=== PATIENT | male | born 1975 | race Caucasian/White ===

== ENCOUNTER 2021-02-10 07:53 | Outpatient (REF) | payer BC, SELFPAY ==
[2021-02-10 09:35] LABS: MANUAL DIFF FLAG NO
[2021-02-10 09:47] LABS: Glucose Urine UA NEG (NEG); Leukocyte Esterase Urine NEG (NEG); Nitrite Urine NEG (NEG); PH 6.5 (5.0-8.0); Urine Blood NEG (NEG); Urine Ketones NEG (NEG); Urine Protein NEG (NEG-TRACE)
[2021-02-10 09:50] LABS: Basophils Percent Auto 0.2 % (0-2); Eosinophils Absolute Auto 0.1 X10*3/uL (0.0-0.4); Eosinophils Percent Auto 2.4 % (0-4); Hematocrit 40.8 % (42-52); Hemoglobin 13.8 g/dl (14.0-18.0); Imm Gran Abs Auto 0.01 X10*3/uL (0.00-0.03); Imm Gran Pct Auto 0.2 % (0.0-0.4); Lymphocytes Absolute Auto 1.6 X10*3/uL (1.2-4.9); Lymphocytes Percent Auto 35.2 % (20-40); Mean Corpuscular HGB Conc 33.8 g/dl (31.0-36.0); Mean Corpuscular Hemoglobin 28.9 pg (27.0-33.0); Mean Corpuscular Volume 85.5 fL (80-98); Mean Platelet Volume 10.1 fL (9.4-12.4); Monocytes Absolute Auto 0.5 X10*3/uL (0.1-1.2); Monocytes Percent Auto 10.2 % (2-11); Neutrophils Absolute Auto 2.4 X10*3/uL (2.0-8.3); Neutrophils Percent Auto 51.8 % (45-73); Platelet Count 214 X10*3/uL (160-400); Red Blood Count 4.77 X10*6/uL (4.60-5.80); Red Cell Distribution Width 12.2 % (11.0-16.0); White Blood Count 4.6 X10*3/uL (4.8-10.8)
[2021-02-10 09:53] LABS: Appearance Urine CLEAR; Color Urine YELLOW
[2021-02-10 10:14] LABS: Estimated Average Glucose 111 mg/dL; Hemoglobin A1c % 5.5 %
[2021-02-10 10:25] LABS: Alanine Aminotransferase 23 U/L (0-40); Albumin Level 4.3 g/dL (3.5-5.0); Alkaline Phosphatase 65 U/L (39-117); Anion Gap 12 (12-20); Aspartate Amino Transferase 23 U/L (5-37); Blood Urea Nitrogen 15 mg/dL (9-16); Calcium 9.4 mg/dL (8.4-10.2); Carbon Dioxide 29 mmol/L (22-29); Chloride 105 mmol/L (96-108); Cholesterol 168 mg/dL; Estimated Glomerular Filt Rate > 60; Glucose Fasting 117 mg/dL (60-99); HDL Cholesterol 32 mg/dL; LDL Cholesterol Calculated 119 mg/dl; Potassium 4.4 mmol/L (3.3-5.1); Sodium 142 mmol/L (135-145); Total Protein 6.6 g/dL (6.5-8.0); Triglycerides 88 mg/dL
[2021-02-10 10:35] LABS: Prostate Specific Antigen 0.36 ng/mL (<0.05-4.0)
[2021-02-10 11:01] LABS: Reflex LDLD? No
== END 2021-02-10 07:54 | disposition home or self-care (01) ==
LOC: HO.LAB 07:53
PROVIDERS: PCP Internal Medicine; Visit Provider Internal Medicine
DX: Z00.00 Encounter for general adult medical examination without abnormal findings (principal); I10 Essential (primary) hypertension; R73.09 Other abnormal glucose; E78.00 Pure hypercholesterolemia, unspecified
CPT/HCPCS: 36415; 80053; 80061; 81003; 83036; 84153; 85025

== ENCOUNTER → 2021-04-06 13:49 | Outpatient (REF) | payer BC, SELFPAY ==
--- NOTE | 2021-04-06 14:00 | HM_ITS ---
TEST PERFORMED: Cardiac event monitoring. ENROLLMENT PERIOD: 04/06/2021 to 05/06/2021-30 days. INDICATION: Palpitations. FINDINGS: In the above monitoring period, the underlying rhythm was sinus. The rates ranged from 70 beats per minute to 120 beats per minute. First-degree heart block was noted. There was 1 instance of chest pain that showed underlying sinus rhythm at 90/min. No specific patient activated symptoms apart from one instance of palpitations. During that time, again it was underlying sinus rhythm at 95/min. Overall apart from mild sinus tachycardia, there were no other arrhythmias of concern during the entire monitoring period. CONCLUSION: Study shows sinus rhythm only and mild sinus tachycardia with evidence of first-degree heart block without any significant arrhythmias. MD VALENTIN Bourgeois/LOS / [id number] MTDD
== END ==
LOC: HO.CARD 13:49
PROVIDERS: PCP Internal Medicine; Visit Provider Internal Medicine
DX: R00.2 Palpitations (principal)
CPT/HCPCS: 93270

== ENCOUNTER 2022-03-05 12:23 | Outpatient (REF) | payer BC, SELFPAY ==
[2022-03-05 12:28] LABS: MANUAL DIFF FLAG NO
[2022-03-05 12:33] LABS: Basophils Percent Auto 0.5 % (0-2); Eosinophils Absolute Auto 0.1 X10*3/uL (0.0-0.4); Hematocrit 46.1 % (42.0-52.0); Hemoglobin 15.1 g/dl (14.0-18.0); Imm Gran Abs Auto 0.02 X10*3/uL (0.00-0.03); Imm Gran Pct Auto 0.3 % (0.0-0.4); Lymphocytes Absolute Auto 2.3 X10*3/uL (1.2-4.9); Lymphocytes Percent Auto 36.3 % (20-40); Mean Corpuscular HGB Conc 32.8 g/dl (31.0-36.0); Mean Corpuscular Hemoglobin 28.9 pg (27.0-33.0); Mean Corpuscular Volume 88.3 fL (80.0-98.0); Mean Platelet Volume 9.9 fL (9.4-12.4); Monocytes Absolute Auto 0.6 X10*3/uL (0.1-1.2); Monocytes Percent Auto 9.1 % (2-11); Neutrophils Absolute Auto 3.3 x10*3/uL (2.0-8.3); Neutrophils Percent Auto 51.8 % (45-73); Platelet Count 263 X10*3/uL (160-400); Red Blood Count 5.22 X10*6/uL (4.60-5.80); Red Cell Distribution Width 12.5 % (11.0-16.0); White Blood Count 6.4 X10*3/uL (4.8-10.8)
[2022-03-05 12:52] LABS: Appearance Urine CLEAR; Color Urine YELLOW; Glucose Urine UA NEG (NEG); Leukocyte Esterase Urine NEG (NEG); Nitrite Urine NEG (NEG); Specific Gravity - Urine 1.025 (1.005-1.025); Urine Blood NEG (NEG); Urine Ketones NEG (NEG); Urine Protein NEG (NEG-TRACE)
[2022-03-05 12:55] LABS: Alanine Aminotransferase 22 U/L (0-40); Albumin Level 4.7 g/dL (3.5-5.0); Alkaline Phosphatase 71 U/L (39-117); Anion Gap 12 (12-20); Aspartate Amino Transferase 20 U/L (5-37); Blood Urea Nitrogen 14 mg/dL (9-16); Calcium 10.1 mg/dL (8.4-10.2); Carbon Dioxide 29 mmol/L (22-29); Chloride 104 mmol/L (96-108); Cholesterol 217 mg/dL; Estimated Glomerular Filt Rate > 60; Glucose Random 117 mg/dL (60-115); HDL Cholesterol 38 mg/dL; LDL Cholesterol Calculated 147 mg/dl; Potassium 4.4 mmol/L (3.3-5.1); Sodium 141 mmol/L (135-145); Total Protein 7.1 g/dL (6.5-8.0); Triglycerides 160 mg/dL
[2022-03-05 13:21] LABS: Estimated Average Glucose 111 mg/dL; Hemoglobin A1c % 5.5 %
[2022-03-05 13:44] LABS: Creatinine Urine 116.36 mg/dL; Microalbum/Creatinine Ratio Ur 4.2 ug/mg cr
== END 2022-03-05 12:24 | disposition home or self-care (01) ==
LOC: HO.LNP 12:23
PROVIDERS: Visit Provider Internal Medicine
DX: Z00.00 Encounter for general adult medical examination without abnormal findings (principal); Z12.5 Encounter for screening for malignant neoplasm of prostate; R73.03 Prediabetes; E78.00 Pure hypercholesterolemia, unspecified; I10 Essential (primary) hypertension
CPT/HCPCS: 80053; 80061; 81003; 82043; 83036; 84153; 85025

== ENCOUNTER 2022-08-28 06:26 | Day surgery (SDC) | payer BC, SELFPAY ==
--- NOTE | 2022-08-27 10:16 | HO.ANESPROP2 ---
Documented by User: Marilia Lowe NP 08/27/22 10:17 HPI - Anesthesia Eval Consult details Narrative: 47yo M for Upper Endoscopy and Colonoscopy PMFSH Past Medical History Medical History (Updated 08/27/22 @ 13:22 by Maury Flower, RN) GERD (gastroesophageal reflux disease) Hyperlipidemia Hypertension Surgical History Surgical History (Updated 08/27/22 @ 13:22 by Maury Flower, RN) History of colonoscopy Social History Social History (Updated 08/28/22 @ 07:48 by Julissa Gonzalez MD) Patient Tobacco Use Status: Former Tobacco user Substance Use Type: Crack/Cocaine Last Used Substance: Weeks (ago) Advance Directives: No Advance Directives Information Provided: Yes Recently lost weight without trying: No Nutrition Risks: No Nutritional Risk Meds Allergies Allergy/AdvReac Type Severity Reaction Status Date / Time No Known Allergies Allergy Unverified 08/10/20 15:15 Home Medications Medication Instructions Recorded Confirmed Last Taken Type atorvastatin 40 mg tablet 1 tab PO DAILY 08/27/22 08/27/22 Unknown History omeprazole 20 mg capsule,delayed 1 cap PO DAILY 08/27/22 08/27/22 Unknown History release valsartan 80 mg tablet 1 tab PO DAILY 08/27/22 08/27/22 Unknown History Exam Exam Date and Time: August 27, 2022 1016 Pertinent Lab Results Pertinent Lab Results: Laboratory Tests 03/05/22 03/05/22 07:10 07:10 WBC 6.4 Hgb 15.1 Hct 46.1 Plt Count 263 Sodium 141 Potassium 4.4 Chloride 104 Carbon Dioxide 29 BUN 14 Creatinine 1.07 Narrative Narrative: 30 Day Holter 2020 CONCLUSION:? Study shows sinus rhythm only and mild sinus tachycardia with evidence of first-degree heart block without any significant arrhythmias. Assessment and Plan Assessment Anesthesia Assessment: Chart Reviewed Documented by User: Julissa Gonzalez MD 08/28/22 07:52 [facility] Active Problems Active Problems: Increased BMI. Denies ADARSH H/o cocaine use. States last used 1 month ago Past Medical History Medical History (Updated 08/27/22 @ 13:22 by Maury Floewr RN) GERD (gastroesophageal reflux disease) Hyperlipidemia Hypertension Family History Family history of problems with anesthesia: No Surgical History Surgical History (Updated 08/27/22 @ 13:22 by Maury Flower RN) History of colonoscopy History of Problems with Anesthesia: No Social History Social History (Updated 08/28/22 @ 07:48 by Julissa Gonzalez MD) Patient Tobacco Use Status: Former Tobacco user Substance Use Type: Crack/Cocaine Last Used Substance: Weeks (ago) Advance Directives: No Advance Directives Information Provided: Yes Recently lost weight without trying: No Nutrition Risks: No Nutritional Risk Meds Allergies Allergy/AdvReac Type Severity Reaction Status Date / Time No Known Allergies Allergy Unverified 08/10/20 15:15 Home Medications Medication Instructions Recorded Confirmed Last Taken Type atorvastatin 40 mg tablet 1 tab PO DAILY 08/27/22 08/27/22 Unknown History omeprazole 20 mg capsule,delayed 1 cap PO DAILY 08/27/22 08/27/22 Unknown History release valsartan 80 mg tablet 1 tab PO DAILY 08/27/22 08/27/22 Unknown History Exam Height,Weight and Vital Signs: Height 6 ft 2 in Weight 121.109 kg Vital Signs Temp Pulse Resp BP Pulse Ox O2 Del Method 08/28/22 06:45 97 F 79 19 147/83 H 99 Room Air Airway Mallampati Class: II TM Dist: >3cm Neck ROM: Full Loose/Missing/Broken Teeth: Yes (Some extractions) Heart: RRR Lungs: CTAB Assessment and Plan Assessment Anesthesia Assessment: Anesthesia Plan Discussed Final Anesthetic Review Family History of Problems with Anesthesia: No History of Problems with Anesthesia: No NPO: Yes ASA Class: III Final Preanesthetic Review: No Changes in Pt Med Stat, Meds/Allgs Chart Reviewed, Consent Obtained/Reviewed and Anes Risks/Benef Reviewed Patient Risk: Intermediate Procedure Risk: Low Assessment/Block/Sedation in SS: Assess/Block/Sedation-SS Anesthetic Plan Anesthetic Plan: MAC: Disposition: Standard PACU
[2022-08-28 06:10] VITALS: BMI 34.2
[2022-08-28 06:45] VITALS: BP 147/83; PULSE 79; RESP 19; TEMP 36.1; O2SAT 99
[2022-08-28] MEDS: Lactated Ringers 1,000 ML 100 ML IVCONT (06:59)
[2022-08-28 08:49] VITALS: BP 116/69; PULSE 91; RESP 16; TEMP 36.8; O2SAT 99
--- NOTE | 2022-08-28 08:52 | P.BOP_ITS ---
Brief Operative Note Date of Service: 08/28/22 Pre-op diagnosis: GERD, Normal EGD, Screening Post-op diagnosis: other (Same, Colon polyps) Procedure: EGD, Colonoscopy to the cecum and TI with biopsies, and hot snare polypectomy of AC polyp Surgeon: Hong Hernandez Anesthesia: MAC Was an Sheet Metal Duct Installer Helper used for this Procedure?: No Estimated blood loss (mL): 2.0 Pathology: other (A. Cecal polyp B. Proximal AC polyp) Condition: stable Disposition: PACU
[2022-08-28 09:04] VITALS: BP 115/85; PULSE 73; RESP 20; TEMP 36.2; O2SAT 97
--- NOTE | 2022-08-28 22:44 | OP_ITS ---
SURGEON: Hong Hernandez MD INDICATIONS: The patient presents for evaluation of gastroesophageal reflux, personal history of a serrated adenoma of the colon, and colorectal cancer screening. Full consent has been obtained from him for this, including risks of bleeding and perforation. PREOPERATIVE DIAGNOSIS: POSTOPERATIVE DIAGNOSIS: PROCEDURE PERFORMED: Esophagogastroduodenoscopy and colonoscopy to the cecum and terminal ileum with biopsies and hot snare polypectomy. ESTIMATED BLOOD LOSS: COMPLICATIONS: ANESTHESIA: Monitored anesthesia care. ASSISTANTS: SPECIMENS: PREOPERATIVE DIAGNOSES: Gastroesophageal reflux, personal history of serrated adenoma of the colon, colorectal cancer screening. POSTOPERATIVE DIAGNOSES: Gastroesophageal reflux, personal history of serrated adenoma of the colon, colorectal cancer screening, normal upper endoscopy, colon polyps, diverticulosis, small internal hemorrhoids. DESCRIPTION OF PROCEDURE: The patient was placed in the left lateral decubitus position. The Olympus video gastroscope was passed in the posterior oropharynx and upper esophagus under direct vision. The scope was passed slowly to the distal esophagus. The gastroesophageal junction appeared normal at 39 cm. There was no sign of any esophagitis nor Jerry esophagus. The scope entered into the stomach. There was no appreciable hiatal hernia. The scope was advanced to the pylorus, and the duodenum was cannulated to the descending portion. The duodenum including the bulb appeared normal without mass or ulceration. The scope was withdrawn back in the stomach. The gastric antrum and body appeared normal with good peristalsis. The scope was retroflexed visualizing the proximal stomach carefully which appeared normal, without any sign of mass or ulceration. The scope was straightened and withdrawn back into the esophagus. The esophageal mucosa appeared normal. The scope was withdrawn from the patient. He was turned around for colonoscopy. The digital rectal exam revealed no abnormalities. The Olympus video pediatric colonoscope was entered into the rectum and advanced easily to the cecum. Once in the cecum, I did identify appendiceal orifice and a normal-appearing ileocecal valve. The terminal ileum was cannulated and appeared normal. The scope was withdrawn back in the colon. The entire cecum was well visualized. In the area adjacent to the appendiceal orifice was a possible 5 or 6 mm area of polypoid tissue, which was biopsied several times. I suspect this probably represented some hyperplastic and/or edematous tissue. The remainder of the cecum appeared normal. The scope was then slowly withdrawn assessing all mucosal surfaces carefully. Preparation was excellent. In the proximal ascending colon was an approximately 8 mm polyp, which was removed by hot snare polypectomy and recovered by suction. The polypectomy site appeared clean, without any sign of residual polyp nor bleeding. I did not visualize any other polyps, colitis, or angiodysplasia. There was a mild amount of diverticulosis noted in the ascending colon, descending colon, and sigmoid colon. In the rectum, scope was retroflexed visualizing internal hemorrhoids, but no other pathology. The rectal mucosa appeared normal. The scope was straightened and withdrawn from the patient. He tolerated both procedures well and was returned to the recovery area in stable condition. IMPRESSION: 1. Normal upper endoscopy. 2. Colon polyps. 3. Diverticulosis. 4. Internal hemorrhoids. PLAN: The results of the Pathology will be checked. Given his previous history, I would recommend a followup colonoscopy within 3 years for further screening and surveillance. He was advised not to use any aspirin or NSAIDs for 1 week. He should continue omeprazole either daily or as needed for symptomatic relief of reflux. He could otherwise see me on a p.r.n. basis. MD YARED Mai/LOS / [id number] MTDD
== END 2022-08-28 09:29 | disposition home or self-care (01) ==
PROVIDERS: PCP Internal Medicine; Visit Provider Internal Medicine
PROC: (CPT 45385; principal; 2022-08-28 07:30)
DX: Z12.11 Encounter for screening for malignant neoplasm of colon (principal); Z86.010 Personal history of colon polyps; D12.0 Benign neoplasm of cecum; D12.2 Benign neoplasm of ascending colon; K57.30 Diverticulosis of large intestine without perforation or abscess without bleeding; K64.8 Other hemorrhoids; K21.9 Gastro-esophageal reflux disease without esophagitis; E78.5 Hyperlipidemia, unspecified; I10 Essential (primary) hypertension; Z79.899 Other long term (current) drug therapy; Z87.891 Personal history of nicotine dependence
CPT/HCPCS: 45385; 45380; 43235; 88305

== ENCOUNTER 2022-09-20 10:39 | Outpatient (REF) | payer BC, SELFPAY ==
[2022-09-20 12:09] LABS: Estimated Average Glucose 117 mg/dL; Hemoglobin A1c % 5.7 %
[2022-09-20 12:22] LABS: Alanine Aminotransferase 22 U/L (0-40); Albumin Level 4.4 g/dL (3.5-5.0); Alkaline Phosphatase 59 U/L (39-117); Aspartate Amino Transferase 20 U/L (5-37); Bilirubin Direct 0.2 mg/dL (0.0-0.5); Bilirubin Total 0.4 mg/dL (0.0-1.0); Cholesterol 199 mg/dL; Glucose Fasting 116 mg/dL (60-99); HDL Cholesterol 34 mg/dL; LDL Cholesterol Calculated 143 mg/dl; Total Protein 6.5 g/dL (6.5-8.0); Triglycerides 112 mg/dL
[2022-09-20 12:54] LABS: Reflex LDLD? No
== END 2022-09-20 10:40 | disposition home or self-care (01) ==
LOC: HO.LNP 10:39
PROVIDERS: Visit Provider Internal Medicine
DX: E78.00 Pure hypercholesterolemia, unspecified (principal); R73.03 Prediabetes
CPT/HCPCS: 80061; 80076; 82947; 83036

== ENCOUNTER 2023-01-09 16:37 | Outpatient (REF) | payer BC, SELFPAY ==
[2023-01-09 17:43] LABS: Influenza A PCR NEGATIVE (Negative); Influenza B PCR NEGATIVE (Negative); Resp Syncy Virus RNA Qual PCR NEGATIVE (Negative); SARS COV2 PCR INHOUSE NEGATIVE (Negative)
== END 2023-01-09 16:38 | disposition home or self-care (01) ==
LOC: HO.LNP 16:37
PROVIDERS: Visit Provider Physician Assistant Medical
DX: Z20.822 Contact with and (suspected) exposure to COVID-19 (principal); R05.9 Cough, unspecified
CPT/HCPCS: 0241U

== ENCOUNTER 2023-03-14 11:22 | Outpatient (REF) | payer BC, SELFPAY ==
[2023-03-14 11:25] LABS: MANUAL DIFF FLAG NO
[2023-03-14 11:46] LABS: Basophils Percent Auto 0.5 % (0-2); Eosinophils Absolute Auto 0.2 X10*3/uL (0.0-0.4); Hemoglobin 14.4 g/dl (14.0-18.0); Imm Gran Abs Auto 0.03 X10*3/uL (0.00-0.03); Imm Gran Pct Auto 0.4 % (0.0-0.4); Lymphocytes Absolute Auto 2.2 X10*3/uL (1.2-4.9); Lymphocytes Percent Auto 27.7 % (20-40); Mean Corpuscular HGB Conc 33.5 g/dl (31.0-36.0); Mean Corpuscular Hemoglobin 29.4 pg (27.0-33.0); Mean Corpuscular Volume 87.9 fL (80.0-98.0); Mean Platelet Volume 10.4 fL (9.4-12.4); Monocytes Absolute Auto 0.8 X10*3/uL (0.1-1.2); Monocytes Percent Auto 9.8 % (2-11); Neutrophils Absolute Auto 4.8 x10*3/uL (2.0-8.3); Neutrophils Percent Auto 59.6 % (45-73); Platelet Count 253 X10*3/uL (160-400); Red Blood Count 4.89 X10*6/uL (4.60-5.80); Red Cell Distribution Width 12.8 % (11.0-16.0)
[2023-03-14 11:49] LABS: Appearance Urine Clear; Color Urine Yellow; Glucose Urine UA Negative (Negative); Leukocyte Esterase Urine Negative (Negative); Nitrite Urine Negative (Negative); PH 5.5 (5.0-9.0); Specific Gravity - Urine >= 1.030 (1.005-1.025); Urine Blood Negative (Negative); Urine Ketones Negative (Negative); Urine Protein Trace mg/dL (Neg-Trace)
[2023-03-14 11:57] LABS: Bacteria Urine None Seen (None Seen); RBC Urine 0-2 /HPF (0-2); Squamous Epithelial Cell Urine 0-2 /HPF (0-2); WBC Urine 0-5 /HPF (0-5)
[2023-03-14 12:07] LABS: Alanine Aminotransferase 27 U/L (0-40); Albumin Level 4.7 g/dL (3.5-5.0); Alkaline Phosphatase 70 U/L (39-117); Anion Gap 14 (12-20); Aspartate Amino Transferase 23 U/L (5-37); Bilirubin Total 1.5 mg/dL (0.0-1.0); Blood Urea Nitrogen 17 mg/dL (9-16); Calcium 9.5 mg/dL (8.4-10.2); Carbon Dioxide 26 mmol/L (22-29); Chloride 106 mmol/L (96-108); Cholesterol 189 mg/dL; Estimated Glomerular Filt Rate > 60; Glucose Fasting 112 mg/dL (60-99); HDL Cholesterol 35 mg/dL; LDL Cholesterol Calculated 137 mg/dl; Potassium 3.8 mmol/L (3.3-5.1); Sodium 142 mmol/L (135-145); Total Protein 6.7 g/dL (6.5-8.0); Triglycerides 89 mg/dL
[2023-03-14 12:19] LABS: Estimated Average Glucose 114 mg/dL; Hemoglobin A1c % 5.6 %
[2023-03-14 12:26] LABS: PSA,Total (Free>4and<10) 0.39 ng/mL (0.00-4.00)
[2023-03-14 12:42] LABS: Creatinine Urine 341.17 mg/dL; Microalbum/Creatinine Ratio Ur 6.4 ug/mg cr
== END 2023-03-14 11:23 | disposition home or self-care (01) ==
LOC: HO.LNP 11:22
PROVIDERS: Visit Provider Internal Medicine
DX: Z00.00 Encounter for general adult medical examination without abnormal findings (principal); R73.09 Other abnormal glucose; E78.00 Pure hypercholesterolemia, unspecified; I10 Essential (primary) hypertension; Z12.5 Encounter for screening for malignant neoplasm of prostate
CPT/HCPCS: 80053; 80061; 81001; 82043; 83036; 84153; 85025

== ENCOUNTER 2023-09-09 11:38 | Outpatient (REF) | payer BC, SELFPAY ==
[2023-09-09 12:53] LABS: Cholesterol 182 mg/dL (<200); HDL Cholesterol 40 mg/dL (>40); LDL Cholesterol Calculated 115 mg/dL (<100); Triglycerides 138 mg/dL (<150)
[2023-09-09 12:54] LABS: Alanine Aminotransferase 16 U/L (0-40); Albumin Level 4.5 g/dL (3.5-5.0); Alkaline Phosphatase 82 U/L (39-117); Aspartate Amino Transferase 18 U/L (5-37); Bilirubin Direct 0.3 mg/dL (0.0-0.5); Bilirubin Total 1.2 mg/dL (0.0-1.0); Total Protein 7.1 g/dL (6.5-8.0)
[2023-09-09 13:34] LABS: Reflex LDLD? No
== END 2023-09-09 11:39 | disposition home or self-care (01) ==
LOC: HO.LNP 11:38
PROVIDERS: Visit Provider Internal Medicine
DX: E78.00 Pure hypercholesterolemia, unspecified (principal)
CPT/HCPCS: 80061; 80076

== ENCOUNTER 2024-03-16 11:25 | Outpatient (REF) | payer BC, SELFPAY ==
[2024-03-16 11:32] LABS: MANUAL DIFF FLAG NO
[2024-03-16 11:41] LABS: Basophils Percent Auto 0.4 % (0-2); Eosinophils Absolute Auto 0.1 X10*3/uL (0.0-0.4); Eosinophils Percent Auto 2.4 % (0-4); Hematocrit 40.5 % (42.0-52.0); Hemoglobin 13.6 g/dl (14.0-18.0); Imm Gran Abs Auto 0.02 X10*3/uL (0.00-0.03); Imm Gran Pct Auto 0.4 % (0.0-0.4); Lymphocytes Absolute Auto 1.8 X10*3/uL (1.2-4.9); Lymphocytes Percent Auto 33.2 % (20-40); Mean Corpuscular HGB Conc 33.6 g/dl (31.0-36.0); Mean Corpuscular Hemoglobin 29.3 pg (27.0-33.0); Mean Corpuscular Volume 87.3 fL (80.0-98.0); Monocytes Absolute Auto 0.5 X10*3/uL (0.1-1.2); Monocytes Percent Auto 8.6 % (2-11); Platelet Count 226 X10*3/uL (160-400); Red Blood Count 4.64 X10*6/uL (4.60-5.80); Red Cell Distribution Width 12.9 % (11.0-16.0); White Blood Count 5.5 X10*3/uL (4.8-10.8)
[2024-03-16 12:02] LABS: Alanine Aminotransferase 19 U/L (0-40); Albumin Level 4.1 g/dL (3.5-5.0); Alkaline Phosphatase 58 U/L (39-117); Anion Gap 11 (12-20); Aspartate Amino Transferase 19 U/L (5-37); Bilirubin Total 0.6 mg/dL (0.0-1.0); Blood Urea Nitrogen 16 mg/dL (9-16); Calcium 9.4 mg/dL (8.4-10.2); Carbon Dioxide 28 mmol/L (22-29); Chloride 107 mmol/L (96-108); Cholesterol 147 mg/dL (<200); Estimated Glomerular Filt Rate > 60; Glucose Fasting 109 mg/dL (60-99); HDL Cholesterol 32 mg/dL (>40); LDL Cholesterol Calculated 101 mg/dL (<100); Potassium 3.8 mmol/L (3.3-5.1); Sodium 142 mmol/L (135-145); Total Protein 6.5 g/dL (6.5-8.0); Triglycerides 72 mg/dL (<150)
== END 2024-03-16 11:26 | disposition home or self-care (01) ==
LOC: HO.LNP 11:25
PROVIDERS: Visit Provider Internal Medicine
DX: Z00.00 Encounter for general adult medical examination without abnormal findings (principal); Z13.6 Encounter for screening for cardiovascular disorders
CPT/HCPCS: 80053; 80061; 85025

== ENCOUNTER 2024-03-23 15:41 | Outpatient (REF) | payer BC, SELFPAY ==
[2024-03-23 16:16] LABS: Appearance Urine Clear; Glucose Urine UA Negative (Negative); Leukocyte Esterase Urine Negative (Negative); Nitrite Urine Negative (Negative); Urine Blood Negative (Negative); Urine Ketones Negative (Negative); Urine Protein Negative (Neg-Trace)
[2024-03-23 16:22] LABS: Color Urine Yellow
[2024-03-23 16:24] LABS: Bacteria Urine None Seen (None Seen); Hyaline Casts Urine 0-2 /LPF (0-2); RBC Urine 0-2 /HPF (0-2); Squamous Epithelial Cell Urine 0-2 /HPF (0-2); WBC Urine 0-5 /HPF (0-5)
[2024-03-23 17:16] LABS: Creatinine Urine 44.17 mg/dL; Microalbumin Urine < 5.0 mg/L
== END 2024-03-23 15:42 | disposition home or self-care (01) ==
LOC: HO.LNP 15:41
PROVIDERS: Visit Provider Internal Medicine
DX: Z00.00 Encounter for general adult medical examination without abnormal findings (principal); R73.03 Prediabetes; E78.00 Pure hypercholesterolemia, unspecified
CPT/HCPCS: 81001; 82043; 82570

== ENCOUNTER → 2024-08-16 15:41 | Outpatient (REF) | payer BC, SELFPAY ==
--- NOTE | 2024-08-16 15:46 | CA_ITS ---
Transthoracic Echocardiogram Patient (Last, First, Middle): George Gonzales J Gender: Male Date of : 1975 Age: 49 Procedure Date: 08/16/2024 Procedure Type: Transthoracic Echocardiogram Location: OP Height: 190.5 cm Weight: 107.05 kg BSA: 2.35 m2 Heart Rate: 78 bpm BP: 122 / 80 mmHg Schedule Manager: Referring MD: Bryn Perla MD Symptoms: R01.1 HEART MURMUR Study Quality: Good ECG Rhythm: Sinus Conclusions: - The left ventricular systolic function is normal. The calculated ejection fraction is 60% by biplane method. - Aortic valve sclerosis but no significant stenosis. - Possible mild pulmonic stenosis. Findings Left Ventricle Normal left ventricular cavity size. There is normal left ventricular wall thickness. The left ventricular systolic function is normal. The calculated ejection fraction is 60% by biplane method. There is no evidence of regional wall motion abnormalities. Evidence suggests grade I (mild) diastolic dysfunction. Right Ventricle Normal right ventricular cavity size and systolic function. Atria Both atria are normal in size. Aortic Valve There is a normal trileaflet aortic valve. There is mild calcification of the aortic valve. There is no aortic valve regurgitation. No significant stenosis. Mitral Valve The mitral valve appears normal. There is no mitral valve regurgitation. There is no mitral valve stenosis. Pulmonic Valve Peak PV gradient is calculated at 13 mmHg. Possible mild pulmonic stenosis. Tricuspid Valve Normal tricuspid valve structure. There is trace tricuspid valve regurgitation. There is no evidence of pulmonary hypertension. Great Vessels The asc aorta is normal in size. Small plaque is seen in the sino tubular ridge. Venous The inferior vena cava is normal in size and collapses greater than 50% with inspiration. Pericardium/Pleural There is no evidence of pericardial effusion. Prior Study Comparison No prior study available for comparison. Measurements 2D Linear Measurements IVSd: 1.04 0.6-0.9/0.6-1.0 cm LVIDd: 5.07 3.9-5.3/4.2-5.9 cm LVIDd Index: 2.16 2.4-3.2/2.2-3.1 cm/m2 LVIDs: 2.84 2.0-3.6 cm LVPWd: 1.02 0.7-1.1 cm Ao Root: 3.10 2.1-3.5 cm LA Diam: 3.70 2.7-3.8/3.0-4.0 cm LAIDs Index: 1.57 1.5-2.3 cm/m2 LV Mass: 241.43 67-162/88-224 g LV Mass Index: 102.74 43-95/49-115 g/m2 LVOT Diam: 2.20 3.0+(-)1.3 cm 2D Systolic Function EF 4C: 58.00 >55% EF 2C: 63.70 >55% EF BiP: 60.40 >55% Mitral Valve MV Pk E: 0.64 MV PK A: 0.99 MV Decel Time: 109.00 E/A: 0.60 E'Lateral: 8.38 E'Medial: 5.33 E/E' Med: 12.00 E/E' Lat: 7.60 PHT: 32.00 MVA PHT: 6.88 Decel Harford: 5.83 Aortic Valve AoV Pk Griffin: 2.15 AoV Mn Griffin: 1.46 AoV VTI: 0.43 AoV Pk Grad: 18.00 Aov Mn Grad: 10.00 EVERETTE Cont.VTI: 1.75 EVERETTE: 1.75 LVOT LVOT Pk Griffin: 1.05 LVOT Mn Griffin: 0.70 LVOT VTI: 0.22 LVOT Pk Grad: 4.00 LVOT Mn Grad: 2.00 LVOT Diam: 2.20 LVOT Area: 3.80 Diastolic Function MV Pk E: 0.64 MV Pk A: 0.99 E/A: 0.60 E'Medial: 5.33 E/E' Med: 12.00 E' Laterial: 8.38 E/E' Lat: 7.60 Right Ventricle TAPSE (mm): 29.00 TVS' Griffin: 13.00 Tricuspid Valve TR Pk Griffin: 1.66 TR Pk Grad: 11.00 RA Press: 3.00 RVSP: 14.00 Great Vessels Aorta Ao Root-2D: 3.10 2.0-3.7 cm Ao Asc: 3.40 2.1-3.4 cm Pulmonary Valve PV Pk Griffin: 1.79 Peak PV Grad: 13.00 Updated in Other Vendor System with Status of Final Teodoro Mock MD electronically signed on 08/17/2024 2:50:14 PM with status of Final
== END ==
LOC: HO.CARD 15:41
PROVIDERS: PCP Internal Medicine; Visit Provider Internal Medicine
DX: R01.1 Cardiac murmur, unspecified (principal)
CPT/HCPCS: 93306

== ENCOUNTER → 2024-08-16 15:46 | Outpatient (BNV) | payer BC, SELFPAY | PROVIDERS: PCP Internal Medicine; Visit Provider Internal Medicine | DX: I35.8 Other nonrheumatic aortic valve disorders (principal); R01.1 Cardiac murmur, unspecified; I37.0 Nonrheumatic pulmonary valve stenosis; I51.89 Other ill-defined heart diseases | CPT/HCPCS: 93306 ==

== ENCOUNTER 2024-09-11 11:21 | Outpatient (REF) | payer BC, SELFPAY ==
[2024-09-11 13:41] LABS: Alanine Aminotransferase 20 U/L (0-40); Albumin Level 4.4 g/dL (3.5-5.0); Alkaline Phosphatase 67 U/L (39-117); Aspartate Amino Transferase 19 U/L (5-37); Bilirubin Direct 0.3 mg/dL (0.0-0.5); Bilirubin Total 0.9 mg/dL (0.0-1.0); Cholesterol 183 mg/dL (<200); Glucose Fasting 106 mg/dL (60-99); HDL Cholesterol 44 mg/dL (>40); LDL Cholesterol Calculated 126 mg/dL (<100); Total Protein 6.7 g/dL (6.5-8.0); Triglycerides 67 mg/dL (<150)
[2024-09-11 13:48] LABS: Estimated Average Glucose 117 mg/dL; Hemoglobin A1C 131.2687 umol/L; Hemoglobin A1c % 5.7 % (<6.0)
== END 2024-09-11 11:22 | disposition home or self-care (01) ==
LOC: HO.HMGCLDS 11:21
PROVIDERS: PCP Internal Medicine; Visit Provider Internal Medicine
DX: R73.09 Other abnormal glucose (principal); E78.00 Pure hypercholesterolemia, unspecified
CPT/HCPCS: 36415; 80061; 80076; 82947; 83036

== ENCOUNTER 2025-03-21 10:33 | Outpatient (REF) | payer BC, SELFPAY ==
[2025-03-21 10:36] LABS: MANUAL DIFF FLAG NO
[2025-03-21 11:01] LABS: Appearance Urine Clear; Color Urine Yellow; Glucose Urine UA Negative (Negative); Leukocyte Esterase Urine Negative (Negative); Nitrite Urine Negative (Negative); Urine Blood Negative (Negative); Urine Ketones Trace mg/dL (Negative); Urine Protein Negative (Neg-Trace)
[2025-03-21 11:06] LABS: Estimated Average Glucose 111 mg/dL; Hemoglobin A1C 131.3812 umol/L; Hemoglobin A1c % 5.5 % (<6.0); Total Hemoglobin (HGBA1C) 3567.0967 umol/L
[2025-03-21 11:07] LABS: Bacteria Urine None Seen (None Seen); Hyaline Casts Urine 0-2 /LPF (0-2); RBC Urine 0-2 /HPF (0-2); Squamous Epithelial Cell Urine 0-2 /HPF (0-2); WBC Urine 0-5 /HPF (0-5)
[2025-03-21 11:23] LABS: Alanine Aminotransferase 21 U/L (0-40); Albumin Level 4.3 g/dL (3.5-5.0); Alkaline Phosphatase 70 U/L (39-117); Anion Gap 12 (12-20); Aspartate Amino Transferase 27 U/L (5-37); Blood Urea Nitrogen 10 mg/dL (9-16); Calcium 9.5 mg/dL (8.4-10.2); Carbon Dioxide 28 mmol/L (22-29); Chloride 107 mmol/L (96-108); Cholesterol 148 mg/dL (<200); Estimated Glomerular Filt Rate > 60; Glucose Fasting 109 mg/dL (60-99); HDL Cholesterol 38 mg/dL (>40); LDL Cholesterol Calculated 98 mg/dL (<100); Sodium 143 mmol/L (135-145); Total Protein 6.6 g/dL (6.5-8.0); Triglycerides 60 mg/dL (<150)
[2025-03-21 11:27] LABS: PSA,Total (Free>4and<10) 0.33 ng/mL (0.00-4.00)
[2025-03-21 12:06] LABS: Creatinine Urine 273.41 mg/dL; Microalbum/Creatinine Ratio Ur 5.8 ug/mg cr (<30)
[2025-03-21 12:19] LABS: Basophils Percent Auto 0.4 % (0-2); Eosinophils Absolute Auto 0.3 X10*3/uL (0.0-0.4); Eosinophils Percent Auto 4.3 % (0-4); Hemoglobin 13.5 g/dl (14.0-18.0); Imm Gran Abs Auto 0.03 X10*3/uL (0.00-0.03); Imm Gran Pct Auto 0.4 % (0.0-0.4); Lymphocytes Absolute Auto 1.6 X10*3/uL (1.2-4.9); Lymphocytes Percent Auto 22.6 % (20-40); Mean Corpuscular HGB Conc 33.8 g/dl (31.0-36.0); Mean Corpuscular Hemoglobin 29.2 pg (27.0-33.0); Mean Corpuscular Volume 86.6 fL (80.0-98.0); Mean Platelet Volume 9.6 fL (9.4-12.4); Monocytes Percent Auto 13.7 % (2-11); Neutrophils Absolute Auto 4.2 x10*3/uL (2.0-8.3); Neutrophils Percent Auto 58.6 % (45-73); Platelet Count 257 X10*3/uL (160-400); Red Blood Count 4.62 X10*6/uL (4.60-5.80); Red Cell Distribution Width 12.7 % (11.0-16.0); White Blood Count 7.2 X10*3/uL (4.8-10.8)
== END 2025-03-21 10:34 | disposition home or self-care (01) ==
LOC: HO.LNP 10:33
PROVIDERS: Visit Provider Internal Medicine
DX: Z00.00 Encounter for general adult medical examination without abnormal findings (principal); R73.09 Other abnormal glucose; E78.00 Pure hypercholesterolemia, unspecified; I10 Essential (primary) hypertension; Z12.5 Encounter for screening for malignant neoplasm of prostate
CPT/HCPCS: 80053; 80061; 81001; 82043; 82570; 83036; 84153; 85025

== ENCOUNTER 2025-09-12 11:05 | Outpatient (AMB) | payer BC, SELFPAY ==
--- NOTE | 2025-09-12 11:10 | A.OFFVIS_ITS ---
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 Last year, he underwent an echocardiogram with reported aortic sclerosis and mild pulmonic stenosis. Patient himself does not have any known cardiac issues including coronary disease or myocardial infarction cardiomyopathy. Many risk factors including hypertension, dyslipidemia, history of remote use of drugs like cocaine but not in 20 years or so. He states he gets chest pains somewhat randomly. No clear provoking or relieving factors. He feels that discomfort in the front of the chest and bothersome but he thinks it is more muscular than anything else. Does not last more than a few sec. Nonexertional. [facility] Medical History (Updated 09/12/25 @ 12:12 by Teodoro Mock MD) History of cardiac monitoring Hyperlipidemia GERD (gastroesophageal reflux disease) Hypertension Surgical History History of colonoscopy Family History (Updated 09/12/25 @ 11:26 by Brenton Strong CNA) Maternal Grandfather No problems noted. Social History (Updated 09/12/25 @ 11:14 by Brenton Strong CNA) Alcohol intake: current Alcohol intake frequency: holidays/special occasions only Alcohol type: beer Patient Tobacco Use Status: Former Tobacco user Substance Use Type: Crack/Cocaine Review of Systems Const Denies chills, Denies daytime sleepiness, Denies fatigue, Denies fever(s), Denies poor appetite, Denies snoring, Denies stops breathing during sleep, Denies weight gain and Denies weight loss Eyes Denies loss of vision Card Denies chest pain, Denies claudication, Denies leg edema, Denies lightheadedness, Denies palpitations, Denies dyspnea, Denies dyspnea on exertion and Denies orthopnea Resp Denies cough, Denies excessive phlegm production, Denies pain with cough, Denies dyspnea, Denies dyspnea on exertion, Denies snoring, Denies wheezing and Denies other GI Denies abdominal pain, Denies hematochezia, Denies change in bowel habits, Denies nausea and Denies vomiting Denies dysuria and Denies urinary frequency Musc Denies arthralgias and Denies muscle weakness Skin/Breast Denies nail changes and Denies rash Neuro Denies loss of vision and Denies memory loss Psych Denies depression, Reports difficulty concentrating, Denies auditory hallucinations and Denies memory loss Endo Denies fatigue and Denies palpitations Oral/Lymph Denies easy bruising Aller/Immun Denies wheezing Physical Exam Vital Signs: Last Vital Signs Pulse 81 09/12/25 11:11 BP 120/74 09/12/25 11:11 BMI result Body Mass Index 29.9 Const General: comfortable and no acute distress Orientation/consciousness: patient oriented x3 HEENT Other: Unremarkable Head: Yes normal to inspection Neck Neck: Yes normal visual inspection Chest Chest palpation & inspection: normal inspection of the chest Resp Auscultation: clear to auscultation bilaterally Cardio Palpation: normal PMI Heart sounds: S1 normal heart sound present, S2 normal heart sound present, no gallops, Murmur heart sound present systolic II/, at the left sternal border and at the right sternal border and no rubs GI Palpation (GI): Soft to palpation Back/Spine/Pelvis Other: unremarkable Skin General skin exam: no rashes or lesions noted Neuro General: patient oriented x3 Extrem General: Yes normal to inspection Psych Mental Status: mental status grossly normal Office Procedures EKG Details: EKG with sinus rhythm at 81/Min; RI prolongation to 214 milliseconds; [place] [address]-Cleputgiuoedzobph, Complete Assessment & Plan Assessment & Plan (1) Precordial chest pain: Code(s): R07.2 - Precordial pain Category: Medical Plan: Atypical sounding chest pain with multiple risk factors. Obtain coronary CTA further evaluation. (2) Aortic valve sclerosis: Code(s): I35.8 - Other nonrheumatic aortic valve disorders Category: Medical Plan: We will need echocardiogram in 2-3 years. (3) Pulmonic valve stenosis: Category: Medical Plan: No hemodynamic consequence. Unlikely this would progress in the future. We will review on future echocardiogram. Plan Discussion Notes During the consultation, I discussed the patient's aortic and pulmonic valve stenosis, explaining that these are not expected to worsen significantly in the near future. I recommended periodic echocardiograms to monitor the valve conditions over time. Regarding the chest discomfort, I explained that it does not appear to be cardiac in nature, but given the patient's history of cocaine use and multiple risk factors, I suggested a CT scan to check for any plaque buildup, considering the potential cardiovascular implications. Patient was informed and verbally consented to the use of an ambient scribe for clinic note documentation during this visit. Orders: Orders CT Cardiac Coronary Angio Today I25.10 - Atherosclerotic heart disease of andreafski coronary artery without angina pectoris, R07.2 - Precordial pain Basic Metabolic Panel Today R07.2 - Precordial pain Coding Level of Care Code New Pt Level 4 (54898) Complex EM visit Add On G2211 Diagnoses Precordial chest pain R07.2 Aortic valve sclerosis I35.8 Pulmonic valve stenosis CPT Codes EKG - CPT: 64828-Pqaricpjqlipwchkb, Complete ([id number])
[2025-09-12 11:11] VITALS: BP 120/74; PULSE 81; BMI 29.9
== END 2025-09-12 11:45 | disposition home or self-care (01) ==
LOC: HO.HCS 11:05
PROVIDERS: PCP Internal Medicine; Visit Provider Internal Medicine
DX: R07.2 Precordial pain (principal); I35.8 Other nonrheumatic aortic valve disorders
CPT/HCPCS: 93010; 99214

== ENCOUNTER → 2025-09-12 11:05 | Outpatient (BNVA) | payer BC, SELFPAY | PROVIDERS: PCP Internal Medicine; Visit Provider Internal Medicine | DX: R07.2 Precordial pain (principal); I25.10 Atherosclerotic heart disease of native coronary artery without angina pectoris; I10 Essential (primary) hypertension; I35.8 Other nonrheumatic aortic valve disorders | CPT/HCPCS: 93005 ==

== ENCOUNTER 2025-09-30 12:57 | Outpatient (REF) | payer BC, SELFPAY ==
--- OUTSIDE RECORDS SUMMARY | 2024-08-17 08:59 | XMS_ITS ---
Author Organization Bryn Perla MD Address [address] [place] [phone] Care Team Providers Care Carbon Printer Name Role Phone Bryn Perla Primary Care Provider [phone] REASON FOR VISIT test result Encounters Encounter Location Date Provider Diagnosis Bryn Perla MD [address] [facility] [address] [place] [phone] 08/17/2024 Bryn Perla Plan Of Treatment Next Appt Details Provider Name:Bryn Hernández ier, 03/23/2026 07:00:00 AM, [address] [place] [address], [address], [phone], Provider Name:Bryn Hernández ier, 03/30/2026 02:30:00 PM, [address] [place] [address], [phone], Progress Notes * George MADDOXDOB: 3 (49 yo M)Acc No.[id number]:08/17/2024 Patient: George Edmondson :1975 A ge:49 Y S ex:Male Address:[address] [place], [place] [id number] * true * Date: Generated for Johan phan/Indra/Robyn on: 11/30/2024 03:09 PM EST
--- OUTSIDE RECORDS SUMMARY | 2024-08-27 08:45 | XMS_ITS ---
Author Organization Bryn Perla MD Address [address] [place] [phone] Care Team Providers Care Consultant Intern Name Role Phone Bryn Perla Primary Care Provider Allergies No Known Allergies REASON FOR VISIT discuss echo results, Video [phone] Medications Medication SIG (Take, Route, Frequency, Duration) Notes Start Date End Date Status Viagra 100 MG take 1/2 tablet by mouth daily as needed Orally Once a day for 30 days Active Valsartan 80 MG TAKE 1 TABLET BY DAVID EVERY DAY FOR 30 DAYS for 90 Active Omeprazole 20 MG TAKE 1 CAPSULE BY MO [facility] EVERY DAY for 90 Active Clobetasol Propionate 0.05 % 1 application Externally Twice a day for 10 day(s) 12/13/2022 Not-Taking ProAir HFA 108 (90 Base) MCG/ACT 2 puffs as needed Inhalation every 4 hrs for 17 Not-Taking Atorvastatin Calcium 80 MG TAKE 1 TABLET BY MOUTH EVERY DAY FOR 90 DAYS for 90 Active Problems Problem Type SNOMED Code ICD Code Onset Dates Problem Status W/U Status Risk Notes Problem 18469330 Aortic valve sclerosis (I35.8) Active confirmed Problem 90337852 Pulmonary valve stenosis, unspecified etiology (I37.0) Active confirmed Vital Signs Height 75 in 08/27/2024 Weight 236 lbs 08/27/2024 BMI 29.49 kg/m2 08/27/2024 weight is 236 BP not taken t alexandre Encounters Encounter Location Date Provider Diagnosis Bryn Perla MD [address] [place] [address] [place] [phone] 08/27/2024 Bryn Perla Aortic valve sclerosis I35.8 and Pulmonary valve stenosis, unspecified etiology I37.0 Assessments Encounter Date Diagnosis (ICD Code) Assessment Notes Treatment Notes Treatment Clinical Notes Section Notes 08/27/2024 Aortic valve sclerosis (ICD-10 - I35.8) discussed findings of US with patient, no treatment needed 08/27/2024 Pulmonary valve stenosis, unspecified etiology (ICD-10 - I37.0) only mild is present, will continue to monitor Plan Of Treatment Treatment Notes Assessment Notes Aortic valve sclerosis discussed finding s of US with patient, no treatment needed Pulmonary valve stenosis, un specified etiology only mild is present, will continue to monitor Next Appt Details Follow Up: cancel oct appt, Reason: Provider Name:Bryn Hernández ier, 03/23/2026 07:00:00 AM, [address] [place] [address], Suite [facility], [place], [place], [phone], Provider Name:Bryn Hernández ier, 03/30/2026 02:30:00 PM, [address] [place] [address], Suite [facility], [place], [place], [phone], Progress Notes * George MADDOXDOB: 3 (49 yo M)Acc No.[id number]:08/27/2024 Patient: Saima kardkGeorge Provider: Marzean Perla MD :1975 A ge:49 Y S ex:Male Date:08/27/2024 Address:[address] [place], [place] [phone] Subjective: * Chief Complaints: * D iscuss echo resultsVideo [phone] * HPI: S ymptom(s): Telehealth L ocation of provider rendering services: [address], [address], L ocation of patient: o ther (please specify) at work, P atient identification confirmed using: N nilam, , SSN, Insurance information, T elehealth method: V ideo conference where patient is visible to the provider of care, C onsent: P atient verbally consented to treatment, Patient verbally consented to billing insurance company, Patient informed of any privacy concerns related to method of visit. patient is a 49 yo male video telehealth visit, here to go over results of his echo. * ROS: G eneral/Constitutional: Denies C hills. D enies F atigue. D enies F ever. D enies H eadache. E NT: Patient denies d ecreased sense of smell , any loss of taste , sore throat. D enies S ore throat. R espiratory: Denies C ough. D enies S hortness of breath at rest. D enies S hortness of breath with exertion. G astrointestinal: Denies D iarrhea. D enies N ausea. M usculoskeletal: Patient denies m uscle aches. P eripheral Vascular: Patient denies r ed and blue toes. * Medical History: * Surgical History: * Hospitalization/Major Diagno stic Procedure: * Medications: T akingAtorvastatin Calcium 80 MG Tablet TAKE 1 TABLET BY MOUTH EVERY DAY FOR 90 DAYS Viagra 100 MG Tablet take 1/2 tablet by mouth daily as needed Orally Once a dayValsartan 80 MG Tablet TAKE 1 TABLET BY MOUTH EVERY DAY FOR 30 DAYS Omeprazole 20 MG Capsule Delayed Release TAKE 1 CAPSULE BY MOUTH EVERY DAY Taking Atorvastatin Calcium 80 MG Tablet TAKE 1 TABLET BY MOUTH EVERY DAY FOR 90 DAYS Taking Viagra 100 MG Tablet take 1/2 tablet by mouth daily as needed Orally Once a dayTaking Valsartan 80 MG Tablet TAKE 1 TABLET BY MOUTH EVERY DAY FOR 30 DAYS Taking Omeprazole 20 MG Capsule Delayed Release TAKE 1 CAPSULE BY MOUTH EVERY DAY Not- Taking/PRNClobetasol Propionate 0.05 % Cream 1 application Externally Twice a dayProAir HFA 108 (90 Base) MCG/ACT Aerosol Solution 2 puffs as needed Inhalation every 4 hrsMedication List reviewed and reconciled with the patientNot-Taking/PRN Clobetasol Propionate 0.05 % Cream 1 application Externally Twice a dayNot-Taking/PRN ProAir HFA 108 (90 Base) MCG/ACT Aerosol Solution 2 puffs as needed Inhalation every 4 hrsMedication List reviewed and reconciled with the patient * Allergies: N .K.D.A.yes[Allergies Verified] Objective: * Vitals: H t: 75, Wt:236, BMI:29.49 weight is 236 BP not taken today. * Examination: G eneral Examination: GENERAL APPEARANCE: alert, well hydrated, in no distress . Assessment: * Assessment: 1. A ortic valve sclerosis - I35.8 (Primary) 2 . P ulmonary valve stenosis, unspecified etiology - I37.0 Plan: * Treatment: 2. P ulmonary valve stenosis, unspecified etiology Notes: only mild is present, will continue to monitor * Procedure Codes: * Follow Up: carmen tyler appt * * Sign off status: Completed true * Provider: Marzena Perla MD Date: Generated for Johan phan/Indra/Manuelasmitting on: 11/30/2024 03:10 PM EST History and Physical Notes * HPI (History of Present Illness) Category Sub-Category Detail Notes Category Not es Symptom(s) Telehealth Location of [facility] rendering services:: [address], [address] patient is a 49 yo male video telehealth visit, here to go over results of his echo Location of patient:: other (please spec [place]) at work Patient identification confi rmed using:: Name, , SSN, Insurance information Telehealth method:: Video co nference where patient is visible to the provider of care Consent:: Patient verbally c onsented to treatment, Patient verbally consented to billing insurance company, Patient informed of any privacy concerns related to method of visit Examination Category Sub-Category Detail Notes Category Not es General Examination GENERAL APPEARANCE: alert, w ell hydrated, in no distress
--- OUTSIDE RECORDS SUMMARY | 2024-09-16 04:00 | XMS_ITS ---
Author Organization Bryn Perla MD Address [address] [place] [phone] Care Team Providers Care Mfts Name Role Phone Bryn Perla Primary Care Provider REASON FOR VISIT fasting lipids Encounters Encounter Location Date Provider Diagnosis Bryn Perla MD [address] [place] [address] [place] [phone] 09/16/2024 Bryn Perla Prediabetes R73.09 a nd Pure hypercholesterolemia E78.00 Assessments Encounter Date Diagnosis (ICD Code) Assessment Notes Treatment Notes Treatment Clinical Notes Section Notes 09/16/2024 Prediabetes (ICD-10 - R73.09) 09/16/2024 Pure hypercholesterolemia (ICD-10 - E78.00) Plan Of Treatment Next Appt Details Provider Name:Bryn ta, 03/23/2026 07:00:00 AM, [address] [place] [address], [address], [phone], Provider Name:Bryn ta, 03/30/2026 02:30:00 PM, [address] [place] [address], [phone], Progress Notes * George MADDOX JDOB: 3 (50 yo M)Acc No.[id number]:09/16/2024 Progress Note Patient: George JULIO Provider: Marzena Perla MD :1975 A ge:49 Y S ex:Male Date:09/16/2024 Address:[address] [place] [address] Subjective: * Chief Complaints: * 1 . Fasting lipids. * Medical History: Objective: * Vitals: Assessment: * Assessment: 1. P rediabetes - R73.09 2 . P ure hypercholesterolemia - E78.00 Plan: * Treatment: ?LAB: Glucose Fasting (Order Cancelled)* Bonny Clark 09/10/20 09:17:59 AM EDT > To be done 09-11-24 ?LAB: Lipid Panel with Reflex (Order Cancelled)* Bonny Clark 09/10/20 09:17:59 AM EDT > To be done 09-11-24 ?LAB: Hemoglobin A1c (Order Cancelled)* Bonny Clark 09/10/20 09:17:59 AM EDT > To be done 09-11-24 2.?Pure hypercholesterolemia?LAB: Liver Panel (Order Cancelled)* Bonny Clark 09/10/20 09:17:59 AM EDT > To be done 09-11-24 ?LAB: Glucose Fasting (Order Cancelled)* Bonny Clark 09/10/20 09:17:59 AM EDT > To be done 09-11-24 ?LAB: Lipid Panel with Reflex (Order Cancelled)* Bonny Clark 09/10/20 09:17:59 AM EDT > To be done 09-11-24 ?LAB: Hemoglobin A1c (Order Cancelled)* Bonny Clark 09/10/20 09:17:59 AM EDT > To be done 09-11-24 * * The named appointment provid er may or may not be the originator of this progress note, and it is not deemed complete until electronically signed by the appointment provider. Sign off status: Pending * Provider: Marzena Perla MD Date: Generated for Johan phan/Indra/Robyn on: 11/30/2024 03:10 PM EST
--- OUTSIDE RECORDS SUMMARY | 2024-09-23 12:00 | XMS_ITS ---
Author Organization Bryn Prela MD Address [address] [place] [phone] Care Team Providers Care Aircraft Refueler Name Role Phone Bryn Perla Primary Care Provider [phone] REASON FOR VISIT 6 month Encounters Encounter Location Date Provider Diagnosis Bryn Perla MD [address] [place] [address] [address] [place] [phone] 09/23/2024 Bryn Perla Plan Of Treatment Next Appt Details Provider Name:Bryn Hernández ier, 03/23/2026 07:00:00 AM, [address] [place] [address], [address], [phone], Provider Name:Bryn Hernández ier, 03/30/2026 02:30:00 PM, [address] [place] [address], [phone], Progress Notes * George MADDOXDOB: 3 (50 yo M)Acc No.[id number]:09/23/2024 Progress Notes Patient: George JULIO Provider: Marzena Perla MD :1975 A ge:49 Y S ex:Male Date:09/23/2024 Address:[address] [place], [place] [address] Subjective: * Chief Complaints: * 1 . 6 month. * Medical History: Objective: * Vitals: Assessment: Plan: * Treatment: * * The named appointment provid er may or may not be the originator of this progress note, and it is not deemed complete until electronically signed by the appointment provider. Sign off status: Pending * Provider: Marzena Perla MD Date: Generated for Johan phan/Indra/Spenceritting on: 11/30/2024 03:09 PM EST
--- OUTSIDE RECORDS SUMMARY | 2024-11-02 09:15 | XMS_ITS ---
Author Organization Bryn Perla MD Address [address] [place] [phone] Care Team Providers Care Woods Boss Name Role Phone Bryn Perla Primary Care Provider Allergies No Known Allergies REASON FOR VISIT ? bronchitis x 1 day cough, Video [phone], Patient did not test for Covid cannot leave work Medications Medication SIG (Take, Route, Frequency, Duration) Notes Start Date End Date Status ProAir HFA 108 (90 Base) MCG/ACT 2 puffs as needed Inhalation every 4 hrs for 17 Not-Taking Albuterol Sulfate HFA 108 (90 Base) MCG/ACT 1 puff as needed Inhalation every 4 hrs for 30 days 11/02/2024 Active Atorvastatin Calcium 80 MG TAKE 1 TABLET BY MOUTH EVERY DAY FOR 90 DAYS for 90 Active Viagra 100 MG take 1/2 tablet by mouth daily as needed Orally Once a day for 30 days Active Valsartan 80 MG TAKE 1 TABLET BY DAVID TH EVERY DAY FOR 30 DAYS for 90 Active Omeprazole 20 MG TAKE 1 CAPSULE BY MO UTH EVERY DAY for 90 Active Clobetasol Propionate 0.05 % 1 application Externally Twice a day for 10 day(s) 12/13/2022 Not-Taking Zithromax Z-Reyes 250 MG 2 tablet on the f irst day, then 1 tablet daily for 4 days Orally Once a day for 5 day(s) 11/02/2024 Active Problems Problem Type SNOMED Code ICD Code Onset Dates Problem Status W/U Status Risk Notes Problem [id number] Acute asthmatic bronchitis (J45.909) Active confirmed Vital Signs Height 75 in 11/02/2024 Weight 233 lbs 11/02/2024 BMI 29.12 kg/m2 11/02/2024 eight at home 233 BP not che en at home no temp Encounters Encounter Location Date Provider Diagnosis Bryn Perla MD [address] [place] [address] [place] [phone] 11/02/2024 Bryn Perla Acute asthmatic bronchitis J45.909 Assessments Encounter Date Diagnosis (ICD Code) Assessment Notes Treatment Notes Treatment Clinical Notes Section Notes 11/02/2024 Acute asthmatic bronchitis (ICD-10 - J45.909) to use his inhaler, patient verbalized understanding of medication nd direcdetions for use Plan Of Treatment Medication Medication Name Sig Start Date Stop Date Notes Albuterol Sulfate HFA 108 (9 0 Base) MCG/ACT 1 puff as needed Inhalation every 4 hrs for 30 days 11/02/2024 Zithromax Z-Reyes 250 MG 2 tablet on the irst day, then 1 tablet daily for 4 days Orally Once a day for 5 day(s) 11/02/2024 Treatment Notes Assessment Notes Acute asthmatic bronchitis to use his in haler, patient verbalized understanding of medication nd direcdetions for use Next Appt Details Provider Name:Bryn ta, 03/23/2026 07:00:00 AM, [address] [place] [address], Suite [facility], [place], [place], [phone], Provider Name:Bryn ta, 03/30/2026 02:30:00 PM, [address] [place] [address], Suite [facility], [place], [place], [phone], Progress Notes * George MADDOXB: 3 (49 yo M)Acc No.[id number]:11/02/2024 Patient: George Edmondson Provider: Marzena Perla MD :1975 A ge:49 Y S ex:Male Date:11/02/2024 [facility] Subjective: * Chief Complaints: * ? bronchitis x 1 day coughVideo [phone] did not test for Covid cannot leave work * HPI: S ymptom(s): Telehealth L ocation of provider rendering services: [address], [address], L ocation of patient: o ther (please specify), P atient identification confirmed using: N nilam, , SSN, Insurance information, T elehealth method: V ideo conference where patient is visible to the provider of care, C onsent: P atient verbally consented to treatment, Patient verbally consented to billing insurance company, Patient informed of any privacy concerns related to method of visit. patient is a 49 yo male video telehealth visit has cough and feels like it is ripping it out/ has some wheezing. not using inhaler, patient has not tested for covid. * ROS: G eneral/Constitutional: Denies C hills. D enies F atigue. D enies F ever. D enies H eadache. E NT: Patient denies d ecreased sense of smell , any loss of taste , sore throat. D enies S ore throat. R espiratory: Admits C ough. D enies S hortness of breath at rest. D enies S hortness of breath with exertion. A dmits S putum production. A dmits W heezing. G astrointestinal: Denies D iarrhea. D enies [...] Verified] Objective: * Vitals: H t: 75, Wt:233, BMI:29.12 eight at home 233 BP not taken at home no temp. * Examination: G eneral Examination: GENERAL APPEARANCE: w ell developed, well nourished. ? Assessment: * Assessment: 1. A cute asthmatic bronchitis - J45.909 (Primary) Plan: * Treatment: * Procedure Codes: * * Sign off status: Completed true * Provider: Marzena Perla MD Date: 01/03/2024 Generated for Johan phan/Indra/Manuelasmitting on: 11/30/2024 03:09 PM EST History and Physical Notes * HPI (History of Present Illness) Category Sub-Category Detail Notes Category Not es Symptom(s) [facility] [address], [address] patient is a 49 yo male video telehealth visit has cough and feels like it is ripping it out/ has some wheezing. not using inhaler, patient has not tested for covid. Location of patient:: other (please spec [place]) Patient identification confirmed using:: Name, , SSN, Insurance information Telehealth method:: Video co nference where patient is visible to the provider of care Consent:: Patient verbally c onsented to treatment, Patient verbally consented to billing insurance company, Patient informed of any privacy concerns related to method of visit Examination Category Sub-Category Detail Notes Category Not es General Examination GENERAL APPEARANCE: well developed , well nourished
--- OUTSIDE RECORDS SUMMARY | 2025-01-20 06:45 | XMS_ITS ---
Author Organization Bryn Perla MD Address [address] [place] [phone] Care Team Providers Care Punchboard Inserter Name Role Phone Bryn Perla Primary Care Provider Allergies No Known Allergies REASON FOR VISIT left knee pain. patient fell 01-19-25 does not want to go to the ER Medications Medication SIG (Take, Route, Frequency, Duration) Notes Start Date End Date Status Omeprazole 20 MG TAKE 1 CAPSULE BY MO [facility] EVERY DAY for 90 Active Albuterol Sulfate HFA 108 (90 Base) MCG/ACT 1 puff as needed Inhalation every 4 hrs for 30 days 11/02/2024 Active Clobetasol Propionate 0.05 % 1 application Externally Twice a day for 10 day(s) 12/13/2022 Not-Taking ProAir HFA 108 (90 Base) MCG/ACT 2 puffs as needed Inhalation every 4 hrs for 17 Not-Taking Atorvastatin Calcium 80 MG TAKE 1 TABLET BY MOUTH EVERY DAY for 90 Active Viagra 100 MG take 1/2 tablet by mouth daily as needed Orally Once a day for 30 days Active Valsartan 80 MG TAKE 1 TABLET BY DAVID EVERY DAY FOR 30 DAYS for 90 Active Vital Signs Blood pressure systolic 120 mm Hg 01/20/20 25 Blood pressure diastolic 80 mm Hg 025 Height 75 in 01/20/2025 Weight 231 lbs 01/20/2025 BMI 28.87 kg/m2 01/20/2025 Encounters Encounter Location Date Provider Diagnosis Bryn Perla MD [address] [place] [address] [place] [phone] 01/20/2025 Bryn Perla Knee injury, left, initial encounter S89.92XA Assessments Encounter Date Diagnosis (ICD Code) Assessment Notes Treatment Notes Treatment Clinical Notes Section Notes 01/20/2025 Knee injury, left, initial encounter (ICD-10 - S89.92XA) referral to ortho/ patient will be going to [facility] walk-in Plan Of Treatment Treatment Notes Assessment Notes Knee injury, left, initial encounter ref erral to ortho/ patient will be going to [facility] walk-in Next Appt Details Provider Name:Bryn Hernández ier, 03/23/2026 07:00:00 AM, [address] [place] [address], [address], [phone], Provider Name:Bryn Hernández ier, 03/30/2026 02:30:00 PM, [address] [place] [address], [place] [address], [place], [place], [phone], Progress Notes * George MADDOXDOB: 3 (49 yo M)Acc No.[id number]:01/20/2025 Progress Notes Patient: Saima George DICKEY Provider: Marzena Perla MD :1975 A ge:49 Y S ex:Male Date:01/20/2025 Address:[address] [place], [place] [phone] Subjective: * Chief Complaints: * l eft knee pain. patient fell 01-19-25 does not want to go to the ER * HPI: F all Risk: History H ave you had any falls with injury in the past year? Y es 01-19-25 slipped on the ice , felt a crack left knee. using crutches, no ER visit.. fell on ice yesterday./ felt like a knuckle popped. has swelling on medial side can't extend leg. not a lot of pain. S ymptom(s): patient is a 49 yo male here for evaluation after fall yesterday on the ice, complaining of left knee pain. * ROS: G eneral/Constitutional: Denies C hills. D enies F atigue. D enies F ever. D enies H eadache. E NT: Patient denies d ecreased sense of smell, any loss of taste, sore throat. D enies S ore throat. [...] Hospitalization/Major Diagno stic Procedure: * Medications: T akingViagra 100 MG Tablet take 1/2 tablet by mouth daily as needed Orally Once a day Valsartan 80 MG Tablet TAKE 1 TABLET BY MOUTH EVERY DAY FOR 30 DAYS Omeprazole 20 MG Capsule Delayed Release TAKE 1 CAPSULE BY MOUTH EVERY DAY Albuterol Sulfate HFA 108 (90 Base) MCG/ACT Aerosol Solution 1 puff as needed Inhalation every 4 hrs Atorvastatin Calcium 80 MG Tablet TAKE 1 TABLET BY MOUTH EVERY DAY Taking Viagra 100 MG Tablet take 1/2 tablet by mouth daily as needed Orally Once a day Taking Valsartan 80 MG Tablet TAKE 1 TABLET BY MOUTH EVERY DAY FOR 30 DAYS Taking Omeprazole 20 MG Capsule Delayed Release TAKE 1 CAPSULE BY MOUTH EVERY DAY Taking Albuterol Sulfate HFA 108 (90 Base) MCG/ACT Aerosol Solution 1 puff as needed Inhalation every 4 hrs Taking Atorvastatin Calcium 80 MG Tablet TAKE 1 TABLET BY MOUTH EVERY DAY Not-Taking/PRNClobetasol Propionate 0.05 % Cream 1 application Externally Twice a day ProAir HFA 108 (90 Base) MCG/ACT Aerosol Solution 2 puffs as needed Inhalation every 4 hrs Medication List reviewed and reconciled with the patientNot-Taking/PRN Clobetasol Propionate 0.05 % Cream 1 application Externally Twice a day Not-Taking/PRN ProAir HFA 108 (90 Base) MCG/ACT Aerosol Solution 2 puffs as needed Inhalation every 4 hrs Medication List reviewed and reconciled with the patient * Allergies: N .K.D.A.yes[Allergies Verified] Objective: * Vitals: H t: 75, Wt: 231, BMI:28.87, BP:120/80, Wt-k.78. * Examination: G eneral Examination: GENERAL APPEARANCE: a lert, well hydrated, in no distress.? EXTREMITIES: h as almost complete range of motion of left knee with no swelling or tenderness. Assessment: * Assessment: 1. K nee injury, left, initial encounter - S89.92XA (Primary) Plan: * Treatment: * Procedure Codes: * * Sign off status: Completed true * Provider: Marzena Perla MD Date: 0 01/20/2025 Generated for Johan phan/Indra/Manuelasmitting on: 11/30/2024 03:11 PM EST History and Physical Notes * HPI (History of Present Illness) Category Sub-Category Detail Notes Category Not es Symptom(s) patient is a 49 yo male here for evaluation after fall yesterday on the ice, complaining of left knee pain Fall Risk History Have you had any falls with injury in the past year?: Yes 01-19-25 slipped on the ice , felt a crack left knee. using crutches, no ER visit. fell on ice yesterday./ felt like a knuckle popped. has swelling on medial side can't extend leg. not a lot of pain Examination Category Sub-Category Detail Notes Category Not es General Examination GENERAL APPEARANCE: alert, w ell hydrated, in no distress EXTREMITIES: has almost complete range of motion of left knee with no swelling or tenderness
--- OUTSIDE RECORDS SUMMARY | 2025-03-21 02:45 | XMS_ITS ---
Author Organization Bryn Perla MD Address [address] [place] [phone] Care Team Providers Care Social Professionals Name Role Phone Bryn Perla Primary Care Provider Results Component Value Reference Range Notes Complete Blood Count Auto Di ff Reviewed date:03/21/2025 05:14:11 PM Interpretation: Performing Lab:[facility], [address] [place] [phone] Notes/Report: White Blood Count 7.2 4.8-10.8 X10*3/uL Red Blood Count 4.62 4.60-5.80 X10*6/uL Hemoglobin 13.5 14.0-18.0 g/dl Hematocrit 40.0 42.0-52.0 % Mean Corpuscular Volume 86.6 80.0-98.0 fL Mean Corpuscular Hemoglobin 29.2 27.0-33.0 pg Mean Corpuscular HGB Conc 33.8 31.0-36.0 g/dl Red Cell Distribution Width 12.7 11.0-16.0 % Platelet Count 257 160-400 X10*3/uL Mean Platelet Volume 9.6 9.4-12.4 fL Neutrophils Percent Auto 58.6 45-73 % Imm Gran Pct Auto 0.4 0.0-0.4 % Lymphocytes Percent Auto 22.6 20-40 % Monocytes Percent Auto 13.7 2-11 % Eosinophils Percent Auto 4.3 0-4 % Basophils Percent Auto 0.4 0-2 % NRBC Pct Auto 0.0 0.0-0.2 /100WBC Neutrophils Absolute Auto 4.2 2.0-8.3 x10*3/u L Imm Gran Abs Auto 0.03 0.00-0.03 X10*3/uL Lymphocytes Absolute Auto 1.6 1.2-4.9 X10*3/u L Monocytes Absolute Auto 1.0 0.1-1.2 X10*3/uL Eosinophils Absolute Auto 0.3 0.0-0.4 X10*3/u L Basophils Absolute Auto 0.0 0.0-0.2 X10*3/uL NRBC Abs Auto 0.000 0.0-0.012 X10*3/uL Comprehensive [place]. Panel Fa st Reviewed date:03/21/2025 12:48:18 PM Interpretation: Performing Lab:[facility], [address] [place] [phone] Notes/Report: Sodium 143 135-145 mmol/L Potassium 4.0 3.3-5.1 mmol/L Chloride 107 96-108 mmol/L Carbon Dioxide 28 22-29 mmol/L Anion Gap 12 12-20 Blood Urea Nitrogen 10 9-16 mg/dL Creatinine 0.79 0.5-1.4 mg/dL Estimated Glomerular Filt Rate > 60 Chronic Kidney Disease: Estimated GFR < 60 mL/min/1.73m2 Severe Kidney Disease: Estimated GFR < 15 mL/min/1.73m2 Glucose Fasting 109 60-99 mg/dL A fasting glucose from 100-125 mg/dl is considered impaired (pre-diabetes). Calcium 9.5 8.4-10.2 mg/dL Bilirubin Total 1.0 0.0-1.0 mg/dL Aspartate Amino Transferase 27 5-37 U/L Alanine Aminotransferase 21 0-40 U/L Total Protein 6.6 6.5-8.0 g/dL Albumin Level 4.3 3.5-5.0 g/dL Alkaline Phosphatase 70 39-117 U/L Lipid Panel Reviewed date:03/21/2025 12:40:18 PM Interpretation: Performing Lab:[facility], [address] [place] [phone] Notes/Report: Triglycerides 60 <150 mg/dL Desirable Triglyceride: less than 150 mg/dL Borderline High Triglyceride 150-199 mg/dL High Triglyceride: 200-499 mg/dL Very High Triglyceride: greater than or equal to 5OO mg/dL Cholesterol 148 <200 mg/dL Desirable Cholesterol: less than 200 mg/dL Borderline High Cholesterol: 200-239 mg/dL High Cholesterol: greater than 239 mg/dL LDL Cholesterol Calculated 98 <100 mg/dL Desirable LDL: less than 100 mg/dL Near Optimal/Above Optimal LDL: 110-129 mg/dL Borderline High LDL: 130-159 mg/dL High LDL: 160-189 mg/dL Very High LDL: greater than or equal to 190 mg/dL HDL Cholesterol 38 >40 mg/dL Desirable HDL: greater than 40 mg/dL Note: This HDL assay may give artificially low results in patients with liver disease. PSA,Total (Free>4and<10) Reviewed date:03/21/2025 12:41:28 PM Interpretation: Performing Lab:[facility], [address] [place] [phone] Notes/Report: PSA,Total (Free>4and<10) 0.33 0.00-4.00 ng/mL A Free PSA was not performed: The percentage of Free PSA can be used to enhance the differentiation of prostate cancer from benign prostatic disease in subjects whose PSA levels are between 4.0 and 10.0 ng/mL. For subjects whose PSA levels are below 4.0 or above 10.0 ng/mL, the risk of prostate cancer is determined on the basis of the PSA alone. Therefore the % Free PSA is recommended only for those subjects whose PSA levels are between 4.0 and 10.0 ng/mL. PSA methodology: Pringle Alinity i Chemiluminescent Microparticle Immunoassay (CMIA) Microalbumin, Random Reviewed date:03/21/2025 12:55:14 PM Interpretation: Performing Lab:[facility], [address] [place] [phone] Notes/Report: Creatinine Urine 273.41 Microalbumin Urine 16.0 Microalbum/Creatinine Ratio Ur 5.8 <30 ug/mg cr Albumin/Creatinine Ratio Reference Ranges: Normal: < 30 ug/mg creatinine Microalbuminuria: 30 - 300 ug/mg creatinine Clinical Albuminuria: > 300 ug/mg creatinine Hemoglobin A1c Reviewed date:03/21/2025 12:39:52 PM Interpretation: Performing Lab:[facility], [address] [place] [phone] Notes/Report: Hemoglobin A1c % 5.5 <6.0 % Hemoglobin A1C Reference Range Adults: 4.8 - 6.0 % Non diabetic: < 6.0 % Goal: < 7.0 % Additional Action Suggested: > 8.0 % Note: Hemoglobin A1c results are invalid for patients with abnormal amounts of HbF. Blood transfusions may impact the HbA1c concentration in the patient sample. Estimated Average Glucose 111 eAG = Estimated average glucose which is %A1C expressed as average glucose, using the formula of the E2J-Jeyjhqq Average Glucose study (ADAG), Diabetes Care, Vol.31,#8, Jun. 2007 UA ClnCatch+Micro w/rflx Cul t Reviewed date:03/21/2025 05:13:04 PM Interpretation: Performing Lab:[facility], [address] [place] [phone] Notes/Report: Urine, Clean Catch Color Urine Yellow Appearance Urine Clear PH 6.0 5.0-9.0 Glucose Urine UA Negative Negative mg/dL Urine Blood Negative Negative Specific [place] - Urine 1.020 1.005-1.025 Urine Protein Negative Neg-Trace mg/dL Urine Ketones Trace Negative mg/dL Nitrite Urine Negative Negative Leukocyte Esterase Urine Negative Negative RBC Urine 0-2 0-2 /HPF WBC Urine 0-5 0-5 /HPF Squamous Epithelial Cell Urine 0-2 0-2 /HPF Bacteria Urine None Seen None Seen Hyaline Casts Urine 0-2 0-2 /LPF REASON FOR VISIT yearly fasting labs Encounters Encounter Location Date Provider Diagnosis Bryn Perla MD [address] [place], [place] [phone] 03/21/2025 Bryn Perla Blood tests for rout ine general physical examination Z00.00 ; Prediabetes R73.09 ; Pure hypercholesterolemia E78.00 and Essential hypertension I10 Assessments Encounter Date Diagnosis (ICD Code) Assessment Notes Treatment Notes Treatment Clinical Notes Section Notes 03/21/2025 Blood tests for rout ine general physical examination (ICD-10 - Z00.00) 03/21/2025 Prediabetes (ICD-10 - R73.09) 03/21/2025 Pure hypercholesterolemia (ICD-10 - E78.00) 03/21/2025 Essential hypertensi on (ICD-10 - I10) Plan Of Treatment Next Appt Details Provider Name:Bryn Hernández ier, 03/23/2026 07:00:00 AM, [address], [address], [place], [place], [phone], Provider Name:Bryn Hernández ier, 03/30/2026 02:30:00 PM, [address], [address], [place], [place], [phone], Progress Notes * George MADDOX JDOB: 3 (50 yo M)Acc No.[id number]:03/21/2025 Progress Note Patient: George JULIO Provider: Marzena Perla MD :1975 A ge:50 Y S ex:Male Date:03/21/2025 Address:[address] [place] [address] Subjective: * Chief Complaints: * 1 . Yearly fasting labs. * Medical History: Objective: * Vitals: Assessment: * Assessment: 1. B lood tests for routine general physical examination - Z00.00 (Primary) 2 .?Prediabetes - R73.09 3 . P ure hypercholesterolemia - E78.00 ?4. E ssential hypertension - I10 Plan: * Treatment: 2. P rediabetes L AB: Complete Blood Count Auto Diff (Collection Date & Time - 03/21/2025 07:45 AM) L AB: Comprehensive [place]. Panel Fast (Collection Date & Time - 03/21/2025 07:45 AM) L AB: Lipid Panel (Collection Date & Time - 03/21/2025 07:45 AM) L AB: PSA,Total (Free>4and<10) (Collection Date & Time - 03/21/2025 07:45 AM) L AB: Microalbumin, Random (Collection Date & Time - 03/21/2025 07:45 AM) L AB: Hemoglobin A1c (Collection Date & Time - 03/21/2025 07:45 AM) L AB: UA ClnCatch+Micro w/rflx Cult (Collection Date & Time - 03/21/2025 07:45 AM) 3. P ure hypercholesterolemia L AB: Complete Blood Count Auto Diff (Collection Date & Time - 03/21/2025 07:45 AM) L AB: Comprehensive [place]. Panel Fast (Collection Date & Time - 03/21/2025 07:45 AM) L AB: Lipid Panel (Collection Date & Time - 03/21/2025 07:45 AM) L AB: PSA,Total (Free>4and<10) (Collection Date & Time - 03/21/2025 07:45 AM) L AB: Microalbumin, Random (Collection Date & Time - 03/21/2025 07:45 AM) L AB: Hemoglobin A1c (Collection Date & Time - 03/21/2025 07:45 AM) L AB: UA ClnCatch+Micro w/rflx Cult (Collection Date & Time - 03/21/2025 07:45 AM) 4. E ssential hypertension L AB: Complete Blood Count Auto Diff (Collection Date & Time - 03/21/2025 07:45 AM) L AB: Comprehensive [place]. Panel Fast (Collection Date & Time - 03/21/2025 07:45 AM) L AB: Lipid Panel (Collection Date & Time - 03/21/2025 07:45 AM) L AB: PSA,Total (Free>4and<10) (Collection Date & Time - 03/21/2025 07:45 AM) L AB: Microalbumin, Random (Collection Date & Time - 03/21/2025 07:45 AM) L AB: Hemoglobin A1c (Collection Date & Time - 03/21/2025 07:45 AM) L AB: UA ClnCatch+Micro w/rflx Cult (Collection Date & Time - 03/21/2025 07:45 AM) * Procedure Codes: 3 6415 VENIPUNCT, ROUTINE* * * The named appointment provid er may or may not be the originator of this progress note, and it is not deemed complete until electronically signed by the appointment provider. Sign off status: Pending * Provider: Marzena Perla MD Date: 0 03/21/2025 Generated for Johan phan/Indra/Robyn on: 1 11/30/2024 03:10 PM EST
--- OUTSIDE RECORDS SUMMARY | 2025-03-28 09:30 | XMS_ITS ---
Author Organization Bryn Perla MD Address [address] [place] [phone] Care Team Providers Care Director Part Name Role Phone Bryn Perla Primary Care Provider Allergies No Known Allergies Results Component Value Reference Range Notes Occult Blood, Stool, Guaiac Reviewed date:03/28/2025 03:07:06 PM Interpretation:Negative Performing Lab: Notes/Report: Negative Occult Blood, Stool, Guaiac Neg Reason For Referral Reason SCREEN FOR COLON CAN CER Diagnosis 1 Screen for colon can cer (Z12.11) Referral Organization Bryn Perla MD Referring Provider First Name Bryn Referring Provider Last Name Pan Referring Provider Speciality Internal M edicine Referred Provider Hong Johns Referred Provider Specialty Gastroentero logy General Notes Flor Cerda 03/28/2025 03:16:55 PM >CALLUM FROM DR JOHNS IS CHECKING TO SEE DATE ON RECALL APPT, SHE WILL LET US KNOW WHEN DUE, JulissaMeenakshiHannah 03/29/2025 08:54:56 AM > patient was do for his Colonscopy in 2023, Flor Cerda 03/31/2025 07:54:49 AM >referral faxed to [facility] for scheduling, CALLUM CALLED AND PATIENT IS OVERDUE FOR COLONOSCOPY. HE NEVER RESPONDED TO RECALL LETTER. THEY HAVE SCHEDULED HIM FOR CONSULT JULY 06 AT 220PM. HE HAS BEEN NOTIFIED, Flor Cerda 07/21/2025 01:14:00 PM >PATIENT NO SHOWED FORAPPT .CLOSE REFERRAL Referral Priority Routine Referral Appointment Date 07/06/2025 REASON FOR VISIT annual visit Medications Medication SIG (Take, Route, Frequency, Duration) Notes Start Date End Date Status Valsartan 80 MG TAKE 1 TABLET BY DAVID TH EVERY DAY FOR 30 DAYS Active Albuterol Sulfate HFA 108 (90 Base) MCG/ACT 1 puff as needed Inhalation every 4 hrs for 30 days 11/02/2024 Active Omeprazole 20 MG TAKE 1 CAPSULE BY MO VAH EVERY DAY Active Clobetasol Propionate 0.05 % 1 application Externally Twice a day for 10 day(s) 12/13/2022 Not-Taking ProAir HFA 108 (90 Base) MCG/ACT 2 puffs as needed Inhalation every 4 hrs for 17 Not-Taking Atorvastatin Calcium 80 MG TAKE 1 TABLET BY MOUTH EVERY DAY Active Viagra 100 MG take 1/2 tablet by mouth daily as needed Orally Once a day for 30 days Active Social History Tobacco Use: Social History Observation Description Date Details (start date - stop date) Former Smoker NA - NA Tobacco Use/Smoking Question Answer Notes Patient is a former smoker How long has it been since y ou last smoked? > 10 years Additional Findings: Tobacco Non-User Fo rmer smoker, currently using no form of tobacco Alcohol Screen Question Answer Notes Did you have a drink contain ing alcohol in the past year? Yes How often did you have a dri nk containing alcohol in the past year? Monthly or less (1 point) How many drinks did you have on a typical day when you were drinking in the past year? 1 or 2 drinks (0 point) How often did you have 6 or more drinks on one occasion in the past year? Never (0 point) Points 1 Interpretation Negative Vital Signs Blood pressure systolic 122 mm Hg 03/28/20 25 Blood pressure diastolic 66 mm Hg 025 Height 75 in 03/28/2025 Weight 235 lbs 03/28/2025 BMI 29.37 kg/m2 03/28/2025 Encounters Encounter Location Date Provider Diagnosis Bryn Perla MD [address] [place] [address] Drive [address] [place], [place] [id number] 03/28/2025 Bryn Perla Prediabetes R73.09 ; Annual physical exam Z00.00 ; Polyp of colon, unspecified part of colon, unspecified type K63.5 ; Pure hypercholesterolemia E78.00 ; Colon cancer screening Z12.11 ; Depression screening Z13.31 ; Essential hypertension I10 and Gastroesophageal reflux disease without esophagitis K21.9 Assessments Encounter Date Diagnosis (ICD Code) Assessment Notes Treatment Notes Treatment Clinical Notes Section Notes 03/28/2025 Prediabetes (ICD-10 - R73.09) keeping weight down, no need for medication at this time 03/28/2025 Annual physical exam (ICD-10 - Z00.00) ;labs reviewed and discussed with patient 03/28/2025 Polyp of colon, unspecified part of colon, unspecified type (ICD-10 - K63.5) do for colonoscopy 03/28/2025 Pure hypercholesterolemia (ICD-10 - E78.00) stable, will continue current regiment 03/28/2025 Colon cancer screeni ng (ICD-10 - Z12.11) guaiac negative 03/28/2025 Depression screening (ICD-10 - Z13.31) negative ascreen 03/28/2025 Essential hypertensi on (ICD-10 - I10) stable, will continue current regiment 03/28/2025 Gastroesophageal ref lux disease without esophagitis (ICD-10 - K21.9) stable, will continue current regiment 03/28/2025 Other REFERRAL FAXED TO [facility] Plan Of Treatment Medication Medication Name Sig Start Date Stop Date Notes Valsartan 80 MG TAKE 1 TABLET BY DAVID TH EVERY DAY FOR 30 DAYS Omeprazole 20 MG TAKE 1 CAPSULE BY MO UTH EVERY DAY Atorvastatin Calcium 80 MG TAKE 1 TABLET BY MOUTH EVERY DAY Treatment Notes Assessment Notes Prediabetes keeping weight down, no need for medication at this time Annual physical exam ;labs reviewed and discussed with patient Polyp of colon, unspecified part of colon, unspecified type do for colonoscopy Pure hypercholesterolemia stable, will c ontinue current regiment Colon cancer screening guaiac negative Depression screening negative ascreen Essential hypertension stable, will cont inue current regiment Gastroesophageal reflux dise ase without esophagitis stable, will continue current regiment Other REFERRAL FAXED TO [facility] Referrals Referral Date Details 03/28/2025 03/28/2025, SCREEN F OR COLON CANCER, Hong Johns Next Appt Details Follow Up: 1 Year, Reason: Provider Name:Bryn Hernández regir, 03/23/2026 07:00:00 AM, [address] [facility], [address], [place], [place], [phone], Provider Name:Bryn Hernández ier, 03/30/2026 02:30:00 PM, [address] [facility], [address], [place], [place], [phone], Progress Notes * George MADDOX JDOB: [birth year] (50 yo M)Acc No.[id number]:03/28/2025 Progress Notes Patient: George JULIO Provider: Marzena Perla MD :1975 A ge:50 Y S ex:Male Date:03/28/2025 Address:[address] [place], [place] [phone] Subjective: * Chief Complaints: * A nnual visit * HPI: D epression Screening: PHQ-9 L ittle interest or pleasure in doing things N ot at all, F eeling down, depressed, or hopeless N ot at all, T rouble falling or staying asleep, or sleeping too much N ot at all, F eeling tired or having little energy N ot at all, P oor appetite or overeating N ot at all, F eeling bad about yourself or that you are a failure, or have let yourself or your family down N ot at all, T rouble concentrating on things, such as reading the newspaper or watching television N ot at all, M oving or speaking so slowly that other people could have noticed; or the opposite, being so fidgety or restless that you have been moving around a lot more than usual N ot at all, T houghts that you would be better off or of hurting yourself in some way N ot at all, T otal Score 0 . I nterpretation and Intervention D epression Screening Findings N egative, F ollow-Up for Depression : review of PHQ-9 found negative result, no follow-up needed. here for follow up and yearly physical. knees are sore all the tme. C ommunication Needs: Communication Needs D oes the patient have a hearing impairment N o, D oes the patient have a vision impairment? N o, D oes the patient have a cognition impairment? N o. S PRABHU Questions: SDOH Questions I n the past year have you been worried about losing housing? N o, I n the past year have you or any family members you live with been unable to get any of the following when it was really needed? Check all that apply: N one. S ymptom(s): patient is a 50 yo male here for annual visit with review of recen t labs and follow up of chronic issues. * ROS: G eneral/Constitutional: Change in appetite d enies. C hills d enies. F ever d enies. O phthalmologic: Blurred vision d enies. D ischarge d enies. P ain d enies. E NT: Decreased hearing d enies. S ore throat d enies.?Swollen glands d enies. E ndocrine: Cold intolerance d enies. E xcessive thirst d enies. H eat intolerance d enies. W eight loss d enies. R espiratory: Cough d enies. S hortness of breath at rest d enies. S hortness of breath with exertion d enies. W heezing d enies. C ardiovascular: Chest pain at rest d enies. C hest pain with exertion?denies. I rregular heartbeat d enies. S hortness of breath d enies. ? G astrointestinal: Abdominal pain d enies. C hange in bowel habits d enies. D iarrhea d enies. N ausea d enies. R ectal bleeding d enies. V omiting d enies . G enitourinary: Blood in urine d enies. D ifficulty urinating d enies. F requent urination d enies. M usculoskeletal: Painful joints d enies. W eakness d enies. ? S kin: Dry skin d enies. I tching d enies. D enies?Mole(s), changes in moles, new moles or any lesions of concern. D enies P hotosensitivity. R gordon d enies. N eurologic: Dizziness d enies. F ainting d enies. H eadache?denies. * Medical History: * Surgical History: * Hospitalization/Major Diagno stic Procedure: * Family History: F ather: alive 74 yrs, bladder cancer. M other: alive 74 yrs, breast cancer. 3 brother(s) , 1 sister(s) - healthy. 4 daughter(s) - healthy. . no mental health/substance abuse family history, No pertinent family medical history. * Social History: T obacco Use: T obacco Use/Smoking P atient is a f ormer smoker, H ow long has it been since you last smoked? > 10 years, A dditional Findings: Tobacco Non-User F ormer smoker, currently using no form of tobacco. D rugs/Alcohol: A lcohol Screen D id you have a drink containing alcohol in the past year? Y es, H ow often did you have a drink containing alcohol in the past year? M onthly or less (1 point), H ow many drinks did you have on a typical day when you were drinking in the past year? 1 or 2 drinks (0 point), H ow often did you have 6 or more drinks on one occasion in the past year? N ever (0 point), P oints 1 , I nterpretation N egative. M iscellaneous: C affeine: yes, frequency:, 1-2 cups per day. Children: yes. Exercise: no. Home smoke detector use: yes. Housing: renting. Living with: spouse. Marital status: . Occupation: works full-time. Pets: dogs x3. Travel outside of the [place]: no. * Medications: T akingViagra 100 MG Tablet [...] Objective: * Vitals: H t: 75, Wt: 235, BMI:29.37, BP:122/66, Wt-k.6. * P ast Orders: L ab:Hemoglobin A1c (Order Date - 03/21/2025) (Collection Date & Time - 03/21/2025 07:45 AM) Value Reference Range Hemoglobin A1c % 5.5 <6.0 - % Estimated Average Glucose 111 - mg/dL L ab:Complete Blood Count Auto Diff (Order Date - 03/21/2025) (Collection Date & Time - 03/21/2025 07:45 AM) Value Reference Range White Blood Count 7.2 4.8-10.8 - X10*3/uL Red Blood Count 4.62 4.60-5.80 - X10*6/uL Hemoglobin 13.5 L 14.0-18.0 - g/dl Hematocrit 40.0 L 42.0-52.0 - % Mean Corpuscular Volume 86.6 80.0-98.0 - fL Mean Corpuscular Hemoglobin 29.2 27.0-33.0 - pg Mean Corpuscular HGB Conc 33.8 31.0-36.0 - g/ dl Red Cell Distribution Width 12.7 11.0-16.0 - % Platelet Count 257 160-400 - X10*3/uL Mean Platelet Volume 9.6 9.4-12.4 - fL Neutrophils Percent Auto 58.6 45-73 - % Imm Gran Pct Auto 0.4 0.0-0.4 - % Lymphocytes Percent Auto 22.6 20-40 - % Monocytes Percent Auto 13.7 H 2-11 - % Eosinophils Percent Auto 4.3 H 0-4 - % Basophils Percent Auto 0.4 0-2 - % NRBC Pct Auto 0.0 0.0-0.2 - /100WBC Neutrophils Absolute Auto 4.2 2.0-8.3 - x10* 3/uL Imm Gran Abs Auto 0.03 0.00-0.03 - X10*3/uL Lymphocytes Absolute Auto 1.6 1.2-4.9 - X10* 3/uL Monocytes Absolute Auto 1.0 0.1-1.2 - X10*3/ uL Eosinophils Absolute Auto 0.3 0.0-0.4 - X10* 3/uL Basophils Absolute Auto 0.0 0.0-0.2 - X10*3/ uL NRBC Abs Auto 0.000 0.0-0.012 - X10*3/uL L ab:UA ClnCatch+Micro w/rflx Cult (Order Date - 03/21/2025) (Collection Date & Time - 03/21/2025 07:45 AM) Value Reference Range Color Urine Yellow - Appearance Urine Clear - PH 6.0 5.0-9.0 - Glucose Urine UA Negative Negative - mg/dL Urine Blood Negative Negative - Specific Wilson - Urine 1.020 1.005-1.025 - Urine Protein Negative Neg-Trace - mg/dL Urine Ketones Trace Negative - mg/dL Nitrite Urine Negative Negative - Leukocyte Esterase Urine Negative Negative - RBC Urine 0-2 0-2 - /HPF WBC Urine 0-5 0-5 - /HPF Squamous Epithelial Cell Urine 0-2 0-2 - /HP F Bacteria Urine None Seen None Seen - Hyaline Casts Urine 0-2 0-2 - /LPF L ab:Comprehensive [place]. Panel Fast (Order Date - 03/21/2025) (Collection Date & Time - 03/21/2025 07:45 AM) Value Reference Range Sodium 143 135-145 - mmol/L Bilirubin Total 1.0 0.0-1.0 - mg/dL Aspartate Amino Transferase 27 5-37 - U/L Alanine Aminotransferase 21 0-40 - U/L Total Protein 6.6 6.5-8.0 - g/dL Albumin Level 4.3 3.5-5.0 - g/dL Alkaline Phosphatase 70 39-117 - U/L Potassium 4.0 3.3-5.1 - mmol/L Chloride 107 96-108 - mmol/L Carbon Dioxide 28 22-29 - mmol/L Anion Gap 12 12-20 - Blood Urea Nitrogen 10 9-16 - mg/dL Creatinine 0.79 0.5-1.4 - mg/dL Estimated Glomerular Filt Rate > 60 - Glucose Fasting 109 H 60-99 - mg/dL Calcium 9.5 8.4-10.2 - mg/dL L ab:Lipid Panel (Order Date - 03/21/2025) (Collection Date & Time - 03/21/2025 07:45 AM) Value Reference Range Triglycerides 60 <150 - mg/dL Cholesterol 148 <200 - mg/dL LDL Cholesterol Calculated 98 <100 - mg/dL HDL Cholesterol 38 L >40 - mg/dL L ab:PSA,Total (Free>4and<10) (Order Date - 03/21/2025) (Collection Date & Time - 03/21/2025 07:45 AM) Value Reference Range PSA,Total (Free>4and<10) 0.33 0.00-4.00 - ng/ mL L ab:Microalbumin, Random (Order Date - 03/21/2025) (Collection Date & Time - 03/21/2025 07:45 AM) Value Reference Range Creatinine Urine 273.41 - mg/dL Microalbumin Urine 16.0 - mg/L Microalbum Creatinine Ratio Ur 5.8 <30 - ug/ mg cr * Examination: G eneral Examination: GENERAL APPEARANCE: w ell developed, well nourished, in no acute distress. HEAD: n ormocephalic, atraumatic. EYES: p upils equal, round, reactive to light and accommodation, sclera non-icteric. EARS: n ormal. ORAL CAVITY: m ucosa moist. THROAT: c lear. NECK/THYROID: n chayito supple, full range of motion, no cervical lymphadenopathy, no bruits. SKIN: w arm and dry, no suspicious lesions. HEART: r egular rate and rhythm, S1, S2 normal, , grade 2/6 systolic murmur at left sternal border. LUNGS: c lear to auscultation bilaterally. ABDOMEN: s oft, nontender, nondistended, bowel sounds present, normal, no organomegaly , no masses palpable. RECTAL EXAM: n ormal tone, no external hemorrhoids, no masses palpable, prostate normal, stool guaiac negative. MALE GENITOURINARY: c ircumcised, no testicular mass, testes descended bilaterally. EXTREMITIES: n o clubbing, cyanosis, or edema. NEUROLOGIC: n onfocal, motor strength normal upper and lower extremities, sensory exam intact. Assessment: * Assessment: 1. A nnual physical exam - Z00.00 (Primary) 2 . P rediabetes - R73.09 ? 3 . P olyp of colon, unspecified part of colon, unspecified type - K63.5 ?4. P ure hypercholesterolemia - E78.00 5 . C olon cancer screening - Z12.11 6 . D epression screening - Z13.31 7 . E ssential hypertension - I10 8 . G astroesophageal reflux disease without esophagitis - K21.9? Plan: * Treatment: 2. P rediabetes Notes: keeping weight down, no need for medication at this time 3. P olyp of colon, unspecified part of colon, unspecified type Notes: do for colonoscopy 4. P ure hypercholesterolemia Continue Atorvastatin Calcium Tablet, 80 MG, TAKE 1 TABLET BY MOUTH EVERY DAY. Notes: stable, will continue current regiment 5. C olon cancer screening L AB: Occult Blood, Stool, Guaiac (Collection Date & Time - 03/28/2025) N egative Value Reference Range O ccult Blood, Stool, Guaiac Neg Notes: guaiac negative??6.?Depression screening? Notes: negative ascreen??7.?Essential hypertension? Continue Valsartan Tablet, 80 MG, TAKE 1 TABLET BY MOUTH EVERY DAY FOR 30 DAYS.?? Notes: stable, will continue current regiment??8.?Gastroesophageal reflux disease without esophagitis? Continue Omeprazole Capsule Delayed Release, 20 MG, TAKE 1 CAPSULE BY MOUTH EVERY DAY.?? Notes: stable, will continue current regiment??9.?Others? Notes: REFERRAL [facility]ED TO [facility]? Referral To:Hong Johns??Gastroenterology ?Reason:SCREEN FOR COLON CANCER * Procedure Codes: 8 2270 TEST FOR BLOOD, FECES * Preventive Medicine: Counseling: C are goal follow-up plan: Alfred bradfordeling for abnormal BMI provided?Yes, Svetlana alvarenga Normal BMI Follow-up Marzena pringle encouragement to exercise. * Follow Up: 1 Year * * Sign off status: Completed true * Provider: Marzena Perla MD Date: 0 03/28/2025 Generated for Johan phan/Indra/Robyn on: 1 11/30/2024 03:10 PM EST History and Physical Notes * HPI (History of Present Illness) Category Sub-Category Detail Notes Category Not es Symptom(s) patient is a 50 yo male here for annual visit with review of recen t labs and follow up of chronic issues. Depression Screening PHQ-9 Little inte rest or pleasure in doing things: Not at all here for follow up and yearly physical. knees are sore all the tme Feeling down, depressed, or hopeless: No t at all Trouble falling or staying asleep, or sl eeping too much: Not at all Feeling tired or having little energy: N ot at all Poor appetite or overeating: Not at all Feeling bad about yourself o r that you are a failure, or have let yourself or your family down: Not at all Trouble concentrating on thi ngs, such as reading the newspaper or watching television: Not at all Moving or speaking so slowly that other people could have noticed; or the opposite, being so fidgety or restless that you have been moving around a lot more than usual: Not at all Thoughts that you would be b emi off or of hurting yourself in some way: Not at all Total Score: 0 Interpretation and Intervention Depression Dominique green Findings: Negative Follow-Up for Depression: : review of PH Q-9 found negative result, no follow-up needed SDOH Questions SDOH Questions In the past year have you been worried about losing housing?: No In the past year have you or any family members you live with been unable to get any of the following when it was really needed? Check all that apply:: None Communication Needs Communication Needs Does the patient have a hearing impairment: No Does the patient have a vision impairmen t?: No Does the patient have a cognition impair ment?: No Examination Category Sub-Category Detail Notes Category Not es General Examination GENERAL APPEARANCE: well dev eloped, well nourished, in no acute distress HEAD: normocephalic, atrau matic EYES: pupils equal, round, reactive to light and accommodation, sclera non-icteric EARS: normal THROAT: clear NECK/THYROID: neck supple, full ra nge of motion, no cervical lymphadenopathy, no bruits HEART: regular rate and rhy thm, S1, S2 normal, , grade 2/6 systolic murmur at left sternal border LUNGS: clear to auscultatio n bilaterally ABDOMEN: soft, nontender, non distended, bowel sounds present, normal, no organomegaly , no masses palpable NEUROLOGIC: nonfocal, motor stre ngth normal upper and lower extremities, sensory exam intact SKIN: warm and dry, no weston picious lesions EXTREMITIES: no clubbing, cyanosi s, or edema MALE GENITOURINARY: circumcised, no test icular mass, testes descended bilaterally RECTAL EXAM: normal tone, no exte rnal hemorrhoids, no masses palpable, prostate normal, stool guaiac negative ORAL CAVITY: mucosa moist Consultation Request Notes Referral Date Referring Provider Referred Provider Not abbi 03/28/2025 Bryn Perla Robert SCREEN FOR COLON CANCER
--- OUTSIDE RECORDS SUMMARY | 2025-05-02 06:00 | XMS_ITS ---
Author Organization Bryn Perla MD Address [address] [place] [phone] Care Team Providers Care Irrigation Teacher Name Role Phone Bryn Perla Primary Care Provider Allergies No Known Allergies Reason For Referral Reason heart murmur Diagnosis 1 Heart murmur (R01.1) Referral Organization Bryn Perla MD Referring Provider First Name Bryn Referring Provider Last Name Pan Referring Provider Speciality Internal M edicine Referred Provider ISABELLE PALENCIA Referred Provider Specialty Cardiology General Notes Hannah Costa 0 05/02/2025 11:09:38 AM > referral info faxed, Hannah Costa 05/06/2025 09:31:52 AM >patient is aware of appt Referral Priority Routine Referral Appointment Date 09/12/2025 REASON FOR VISIT wants referral to Cardiology Family History Medications Medication SIG (Take, Route, Frequency, Duration) Notes Start Date End Date Status Viagra 100 MG take 1/2 tablet by mouth daily as needed Orally Once a day for 30 days Active Albuterol Sulfate HFA 108 (90 Base) MCG/ACT 1 puff as needed Inhalation every 4 hrs for 30 days 11/02/2024 Active Clobetasol Propionate 0.05 % 1 application Externally Twice a day for 10 day(s) 12/13/2022 Not-Taking ProAir HFA 108 (90 Base) MCG/ACT 2 puffs as needed Inhalation every 4 hrs for 17 Not-Taking Omeprazole 20 MG TAKE 1 CAPSULE BY MO UTH EVERY DAY Active Atorvastatin Calcium 80 MG TAKE 1 TABLET BY MOUTH EVERY DAY Active Valsartan 80 MG TAKE 1 TABLET BY DAVID EVERY DAY FOR 30 DAYS Active Vital Signs Blood pressure systolic 110 mm Hg 05/02/20 25 Blood pressure diastolic 70 mm Hg 025 Height 75 in 05/02/2025 Weight 221 lbs 05/02/2025 BMI 27.62 kg/m2 05/02/2025 Encounters Encounter Location Date Provider Diagnosis Bryn Perla MD [address] [place] [address] [place] [phone] 05/02/2025 Bryn Perla Heart murmur R01.1 Assessments Encounter Date Diagnosis (ICD Code) Assessment Notes Treatment Notes Treatment Clinical Notes Section Notes 05/02/2025 Heart murmur (ICD-10 - R01.1) send referral to dr samaniego Plan Of Treatment Treatment Notes Assessment Notes Heart murmur send referral to dr samaniego Referrals Referral Date Details 05/02/2025 05/02/2025, heart mu [facility] Next Appt Details Provider Name:Bryn ta, 03/23/2026 07:00:00 AM, [address] [place] [address], [address], [phone], Provider Name:Bryn ta, 03/30/2026 02:30:00 PM, [address] [place] [address], [place] [address], [place], [place], [phone], Progress Notes * George MADDOXDOB: [birth year] (50 yo M)Acc No.[id number]:05/02/2025 Progress Notes Patient: George JULIO Provider: Marzena Perla MD :1975 A ge:50 Y S ex:Male Date:05/02/2025 [id number] Subjective: * Chief Complaints: * w ants referral to Cardiology Family History * HPI: S ymptom(s): patient is a 50 yo male here to discuss referral to Cardiology/ family history of cad. . worried that he can feel his pulse at base of neck. * ROS: G eneral/Constitutional: Denies C hills. D enies F atigue. D enies F ever. D enies H eadache. E NT: Denies S ore throat. R espiratory: Denies C ough. D enies S hortness of breath at rest. D enies S hortness of breath with exertion. C ardiovascular: Denies C hest pain at rest. D enies C hest pain with exertion. D enies D izziness. A dmits P alpitations. D enies S hortness of breath. G astrointestinal: Denies D iarrhea. D enies N ausea. * Medical History: * Surgical History: * Hospitalization/Major Diagno stic Procedure: * Medications: T akingViagra 100 MG Tablet take 1/2 tablet by mouth daily as needed Orally Once a day Albuterol Sulfate HFA 108 (90 Base) MCG/ACT Aerosol Solution 1 puff as needed Inhalation every 4 hrs Atorvastatin Calcium 80 MG Tablet TAKE 1 TABLET BY MOUTH EVERY DAY Valsartan 80 MG Tablet TAKE 1 TABLET BY MOUTH EVERY DAY FOR 30 DAYS Omeprazole 20 MG Capsule Delayed Release TAKE 1 CAPSULE BY MOUTH EVERY DAY Taking Viagra 100 MG Tablet take 1/2 tablet by mouth daily as needed Orally Once a day Taking Albuterol Sulfate HFA 108 (90 Base) MCG/ACT Aerosol Solution 1 puff as needed Inhalation every 4 hrs Taking Atorvastatin Calcium 80 MG Tablet TAKE 1 TABLET BY MOUTH EVERY DAY Taking Valsartan 80 MG Tablet TAKE 1 TABLET BY MOUTH EVERY DAY FOR 30 DAYS Taking Omeprazole 20 MG Capsule Delayed Release TAKE 1 CAPSULE BY MOUTH EVERY DAY Not-Taking/PRNClobetasol Propionate 0.05 [...] Objective: * Vitals: H t: 75, Wt: 221, BMI:27.62, BP:110/70, Wt-k.24. * Examination: G eneral Examination: GENERAL APPEARANCE: a lert, well hydrated, in no distress.? HEAD: n ormocephalic. SKIN: g ood turgor. HEART: n o murmurs, rubs, gallops, regular rate and rhythm.? LUNGS: n o wheezes, rales, rhonchi, good air movement, clear to auscultation bilaterally. Assessment: * Assessment: 1. H eart murmur - R01.1 (Primary) Plan: * Treatment: * Procedure Codes: * * Sign off status: Completed true * Provider: Marzena Perla MD Date: 0 05/02/2025 Generated for Johan phan/Indra/eTransmitting on: 1 11/30/2024 03:10 PM EST History and Physical Notes * HPI (History of Present Illness) Category Sub-Category Detail Notes Category Not es Symptom(s) patient is a 50 yo male here to discuss referral to Cardiology/ family history of cad. . worried that he can feel his pulse at base of neck Examination Category Sub-Category Detail Notes Category Not es General Examination GENERAL APPEARANCE: alert, w ell hydrated, in no distress HEAD: normocephalic HEART: no murmurs, rubs, ga llops, regular rate and rhythm LUNGS: no wheezes, rales, r honchi, good air movement, clear to auscultation bilaterally SKIN: good turgor Consultation Request Notes Referral Date Referring Provider Referred Provider Not es 05/02/2025 Bryn Perla HARIHARAN h eart murmur
--- OUTSIDE RECORDS SUMMARY | 2025-07-06 09:20 | XMS_ITS ---
Author Organization [facility] Address [address] [place] [phone] Care Team Providers Care Apprentice Painter Neckties Name Role Phone Bryn Perla MD Primary Care Provider Hong Che [phone] REASON FOR VISIT Patient presents today for a COLON SCREENING Encounters Encounter Location Date Provider Diagnosis [facility] [address] [facility] [address] [place] [phone] 07/06/2025 Hong Hernandez Plan Of Treatment Next Appt Details Provider Name:Hong Hernandez , 11/25/2025 01:40:00 PM, [address] [facility], [address], [place], [phone], Progress Notes * CASA MADDOXDOB: [birth year] (50 yo M)Acc No.[id number]:07/06/2025 Progress Notes Patient: Saima DICKEY CASA Haywood Provider: Luna Hernandez MD :1975 A ge:50 Y S ex:Male Date:07/06/2025 Address:[address] [place], [place] [phone] Pcp:Bryn Perla MD Subjective: * Chief Complaints: * 1 . Patient presents today for a COLON SCREENING. * Medical History: Objective: * Vitals: Assessment: Plan: * Treatment: * * The named appointment provid er may or may not be the originator of this progress note, and it is not deemed complete until electronically signed by the appointment provider. Sign off status: Pending * Provider: Luna Hernandez MD Date: 0 07/06/2025 Generated for Johan phan/Indra/Robyn on: 1 11/30/2024 03:11 PM EST
--- OUTSIDE RECORDS SUMMARY | 2025-09-30 02:00 | XMS_ITS ---
Author Organization Bryn Perla MD Address [address] [place], [place] [phone] Care Team Providers Care Speech Pathology Assistant Name Role Phone Bryn Perla Primary Care Provider Results Component Value Reference Range Notes Liver Panel (Not yet reviewe d by provider) Interpretation: Performing Lab:[facility], [address] [place] [phone] Notes/Report: Bilirubin Total 1.2 0.0-1.0 mg/dL Slight Icte josé. Bilirubin Direct 0.3 0.0-0.5 mg/dL Slight Ict erus. Aspartate Amino Transferase 27 5-37 U/L Alanine Aminotransferase 21 0-40 U/L Total Protein 7.0 6.5-8.0 g/dL Albumin Level 5.0 3.5-5.0 g/dL Alkaline Phosphatase 55 39-117 U/L Glucose Fasting (Not yet rev iewed by provider) Interpretation: Performing Lab:[facility], [address] [place] [phone] Notes/Report: Glucose Fasting 105 60-99 mg/dL A fasting glucose from 100-125 mg/dl is considered impaired (pre-diabetes). Lipid Panel with Reflex (Not yet reviewed by provider) Interpretation: Performing Lab:[facility], [address] [place] [phone] Notes/Report: Triglycerides 76 <150 mg/dL Desirable Triglyceride: less than 150 mg/dL Borderline High Triglyceride 150-199 mg/dL High Triglyceride: 200-499 mg/dL Very High Triglyceride: greater than or equal to 5OO mg/dL Cholesterol 175 <200 mg/dL Desirable Cholesterol: less than 200 mg/dL Borderline High Cholesterol: 200-239 mg/dL High Cholesterol: greater than 239 mg/dL LDL Cholesterol Calculated 122 <100 mg/dL Desirable LDL: less than 100 mg/dL Near Optimal/Above Optimal LDL: 110-129 mg/dL Borderline High LDL: 130-159 mg/dL High LDL: 160-189 mg/dL Very High LDL: greater than or equal to 190 mg/dL HDL Cholesterol 38 >40 mg/dL Desirable HDL: greater than 40 mg/dL Note: This HDL assay may give artificially low results in patients with liver disease. Hemoglobin A1c (Not yet revi ewed by provider) Interpretation: Performing Lab:[facility], [address] [place] [phone] Notes/Report: Hemoglobin A1c % 5.5 <6.0 % [...] average glucose, using the formula of the E1S-Asocdae Average Glucose study (ADAG), Diabetes Care, Vol.31,#8, 2007 REASON FOR VISIT FASTING LIPIDS Encounters Encounter Location Date Provider Diagnosis Bryn Perla MD [address] [place] [address] Drive [address] [place], [place] [phone] 09/30/2025 Bryn Perla Prediabetes R73.09 a nd Pure hypercholesterolemia E78.00 Assessments Encounter Date Diagnosis (ICD Code) Assessment Notes Treatment Notes Treatment Clinical Notes Section Notes 09/30/2025 Prediabetes (ICD-10 - R73.09) 09/30/2025 Pure hypercholesterolemia (ICD-10 - E78.00) Plan Of Treatment Pending Test Test Name Order Date Liver Panel 09/30/2025 Glucose Fasting 09/30/2025 Lipid Panel with Reflex 09/30/2025 Hemoglobin A1c 09/30/2025 Next Appt Details Provider Name:Bryn Hernández ier, 03/23/2026 07:00:00 AM, [address] [facility], [address], [place], [place], [phone], Provider Name:Bryn Hernández ier, 03/30/2026 02:30:00 PM, [address], [address], [place], [place], [phone], Progress Notes * George MADDOX JDOB: [birth year] (50 yo M)Acc No.[id number]:09/30/2025 Progress Note Patient: George JULIO Provider: Marzena Perla MD :1975 A ge:50 Y S ex:Male Date:09/30/2025 Address:[address] [place], [place] [phone] Subjective: * Chief Complaints: * 1 . FASTING LIPIDS. * Medical History: Objective: * Vitals: Assessment: * Assessment: 1. P rediabetes - R73.09 (Primary) 2 . P ure hypercholesterolemia - E78.00? Plan: * Treatment: 2. P ure hypercholesterolemia L AB: Liver Panel (Collection Date & Time - 09/30/2025 07:00 AM) L AB: Glucose Fasting (Collection Date & Time - 09/30/2025 07:00 AM) L AB: Lipid Panel with Reflex (Collection Date & Time - 09/30/2025 07:00 AM) L AB: Hemoglobin A1c (Collection Date & Time - 09/30/2025 07:00 AM) * Procedure Codes: 3 6415 VENIPUNCT, ROUTINE* * * The named appointment provid er may or may not be the originator of this progress note, and it is not deemed complete until electronically signed by the appointment provider. Sign off status: Pending * Provider: Marzena Perla MD Date: 11/30/2024 Generated for Johan phan/Indra/Spenceritting on: 11/30/2024 03:10 PM EST
[2025-09-30 13:30] LABS: Hemoglobin A1C 88.2846 umol/L
[2025-09-30 13:42] LABS: Alanine Aminotransferase 21 U/L (0-40); Albumin Level 5.0 g/dL (3.5-5.0); Alkaline Phosphatase 55 U/L (39-117); Aspartate Amino Transferase 27 U/L (5-37); Cholesterol 175 mg/dL (<200); HDL Cholesterol 38 mg/dL (>40); Total Protein 7.0 g/dL (6.5-8.0); Triglycerides 76 mg/dL (<150)
[2025-09-30 13:47] LABS: Reflex LDLD? No
--- OUTSIDE RECORDS SUMMARY | 2025-09-30 15:10 | XMS_ITS | Patient Health Record ---
Author Organization [facility] Address [address] [place] [phone] Care Team Providers Care Orderlies Teacher Name Role Phone Bryn Perla MD Primary Care Provider Hong Che Unavailable [phone] Allergies No Known Allergies Reason For Referral No Information Medications Medication SIG (Take, Route, Frequency, Duration) Notes Start Date End Date Status Omeprazole 20 MG TAKE 1 CAPSULE BY MO [facility] EVERY DAY X 30 DAYS Oral; Duration: 30 Active Atorvastatin Calcium 40 MG TAKE 1 TABLET BY MOUTH ONCE DAILY ORALLY ONCE A DAY 30 DAYS Oral; Duration: 90 Active Valsartan 80 MG TAKE 1 TABLET BY DAVID EVERY DAY FOR 30 DAYS Oral; Duration: 90 Active Immunizations Vaccine Route Administration Date Status Comme nts Influenza Unknown 10/16/2021 Administered Social History Tobacco Use: Social History Observation Description Date Details (start date - stop date) Never Smoker NA - NA Tobacco Use/Smoking Question Answer Notes Patient is a nonsmoker Alcohol Screen Question Answer Notes Did you have a drink contain ing alcohol in the past year? Yes How often did you have a dri nk containing alcohol in the past year? 2 to 4 times a month (2 points) How many drinks did you have on a typical day when you were drinking in the past year? 1 or 2 drinks (0 point) How often did you have 6 or more drinks on one occasion in the past year? Monthly (2 points) Points 4 Interpretation Positive Section Notes: Nonsmoker; occ. alcohol Problems Problem Type SNOMED Code ICD Code Onset Dates Problem Status W/U Status Risk Notes Problem Esophageal reflux (159767397) Esophageal reflux (K21.9) Active confirmed Problem Screening for malignant neoplasm of colon (791854216) Encounter for screening for malignant neoplasm of colon (Z12.11) Active confirmed Problem Gastroesophageal reflux disease (445029122) GERD (gastroesophageal reflux disease) (K21.9) Active confirmed Problem Diverticulosis of colon (399418021) Diverticulosis of colon (K57.30) Active confirmed Problem Benign neoplasm of colon (96472653) Serrated adenoma of colon (D12.6) Active confirmed Encounters Encounter Location Date Provider Diagnosis [facility] [address] [place] [address] 03/28/2025 Hong Hernandez [facility] [address] [facility] [address] [place] [address] 07/06/2025 Hong Hernandez Plan Of Treatment Future Test Test Name Order Date UPPER GI ENDOSCOPY 06/26/2022 COLONOSCOPY 06/26/2022 Next Appt Details Provider Name:Hong Hernandez , 11/25/2025 01:40:00 PM, [address] [facility], [address], [place], [phone], Insurance Providers Payer Name Payer Address Payer Phone Subscriber Number Group Number Insured Name Patient Relationship to Insured Coverage Start Date Coverage End Date [facility] [address] [place] [address] [phone] [id number] CASA MADDOX Self - patient is the insured Medical (General) History Medical History History ICD Code HTN Denies CO,DM,CVA,Lung disease,renal dise ase Colonoscopy with Dr. Carrie kumar 06/2011 done for the evaluation of some rectal bleeding. This revealed a small serrated adenoma near the appendiceal orifice that was removed, as well as some internal hemorrhoids GERD Hyperlipidemia Surgical History Surgery Date(Month/Year)
--- OUTSIDE RECORDS SUMMARY | 2025-09-30 15:10 | XMS_ITS | Patient Health Record ---
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 Panel Fa st Reviewed date:03/21/2025 12:48:18 PM Interpretation: Performing Lab:[facility], [address] [place] [phone] Notes/Report: Sodium 143 135-145 mmol/L Potassium 4.0 [...] Panel Reviewed date:03/21/2025 12:40:18 PM Interpretation: Performing Lab:[facility], [address] [place] [phone] Notes/Report: Triglycerides 60 <150 mg/dL Desirable Triglyceride: [...] (Free>4and<10) Reviewed date:03/21/2025 12:41:28 PM Interpretation: Performing Lab:[facility], [address] [place] [phone] Notes/Report: PSA,Total (Free>4and<10) 0.33 0.00-4.00 ng/mL A [...] Random Reviewed date:03/21/2025 12:55:14 PM Interpretation: Performing Lab:[facility], [address] [place] [phone] Notes/Report: Creatinine Urine 273.41 Microalbumin Urine 16.0 Microalbum/Creatinine Ratio Ur 5.8 <30 ug/mg cr Albumin/Creatinine Ratio Reference Ranges: Normal: < 30 ug/mg creatinine Microalbuminuria: 30 - 300 ug/mg creatinine Clinical Albuminuria: > 300 ug/mg creatinine Hemoglobin A1c Reviewed date:03/21/2025 12:39:52 PM Interpretation: Performing Lab:[facility], [address] [place] [phone] Notes/Report: Hemoglobin A1c % 5.5 <6.0 % [...] average glucose, using the formula of the J1D-Cdkiakc Average Glucose study (ADAG), Diabetes Care, Vol.31,#8, Jun. 2007 UA ClnCatch+Micro w/rflx Cul t Reviewed date:03/21/2025 05:13:04 PM Interpretation: Performing Lab:[facility], [address] [place] [phone] Notes/Report: Urine, Clean Catch Color Urine Yellow Appearance Urine Clear PH 6.0 5.0-9.0 Glucose Urine UA Negative Negative mg/dL Urine Blood Negative Negative Specific Jber - Urine 1.020 1.005-1.025 Urine Protein Negative Neg-Trace mg/dL Urine Ketones Trace Negative mg/dL Nitrite Urine Negative Negative Leukocyte Esterase Urine Negative Negative RBC Urine 0-2 0-2 /HPF WBC Urine 0-5 0-5 /HPF Squamous Epithelial Cell Urine 0-2 0-2 /HPF Bacteria Urine None Seen None Seen Hyaline Casts Urine 0-2 0-2 /LPF Liver Panel (Not yet review ed by provider) Interpretation: Performing Lab:[address] [phone] Notes/Report: Bilirubin Total 1.2 0.0-1.0 mg/dL Slight Icte josé. Bilirubin Direct 0.3 0.0-0.5 mg/dL Slight Ict erus. Aspartate Amino Transferase 27 5-37 U/L Alanine Aminotransferase 21 0-40 U/L Total Protein 7.0 6.5-8.0 g/dL Albumin Level 5.0 3.5-5.0 g/dL Alkaline Phosphatase 55 39-117 U/L Glucose Fasting (Not yet rev iewed by provider) Interpretation: Performing Lab:[address] [phone] Notes/Report: Glucose Fasting 105 60-99 mg/dL A fasting glucose from 100-125 mg/dl is considered impaired (pre-diabetes). Lipid Panel with Reflex (Not yet reviewed by provider) Interpretation: Performing Lab:[address] [phone] Notes/Report: Triglycerides 76 <150 mg/dL Desirable Triglyceride: [...] yet revi ewed by provider) Interpretation: Performing Lab:[address] [phone] Notes/Report: Hemoglobin A1c % 5.5 <6.0 % [...] average glucose, using the formula of the Z9M-Wvefkuy Average Glucose study (ADAG), Diabetes Care, Vol.31,#8, 2007 Occult Blood, Stool, Guaiac Reviewed date:03/28/2025 03:07:06 PM Interpretation:Negative Performing Lab: Notes/Report: Negative Occult Blood, Stool, Guaiac Neg Zuleika Carpenter Reviewed date:09/30/2025 02:06:27 PM Interpretation: Performing Lab:[facility], [address], [place] [address] Notes/Report: Hold Gold See Note Specimen held untested for 24 hours; Call to request Chemistry testing. Reason For Referral Reason SCREEN FOR COLON CAN CER Diagnosis 1 Screen for colon can cer (Z12.11) Referral Organization Bryn Perla MD Referring Provider First Name Bryn Referring Provider Last Name Pan Referring Provider Speciality Internal M edicine Referred Provider Hong Johns Referred Provider Specialty Gastroentero logy General Notes Flor Cerda 03/28/2025 03:16:55 PM >CALLUM FROM DR [facility] IS CHECKING TO SEE DATE ON RECALL APPT, SHE WILL LET US KNOW WHEN DUE, Hannah Costa 03/29/2025 08:54:56 AM > patient was do for his Colonscopy in 2023, Flor Cerda 03/31/2025 07:54:49 AM >referral faxed to gastro for scheduling, CALLUM CALLED AND PATIENT IS OVERDUE FOR COLONOSCOPY. HE NEVER RESPONDED TO RECALL LETTER. THEY HAVE SCHEDULED HIM FOR CONSULT JULY 06 AT 220PM. HE HAS BEEN NOTIFIED, Flor Cerda 07/21/2025 01:14:00 PM >PATIENT NO SHOWED FORAPPT .CLOSE REFERRAL Referral Priority Routine Referral Appointment Date 07/06/2025 Reason heart murmur Diagnosis 1 Heart murmur (R01.1) Referral Organization Bryn ePrla MD Referring Provider First Name Bryn Referring Provider Last Name Pan Referring Provider Speciality Internal M edicine Referred Provider ISABELLE PALENCIA Referred Provider Specialty Cardiology General Notes Hannah Costa 0 05/02/2025 11:09:38 AM > referral info faxed, Hannah Costa 05/06/2025 09:31:52 AM >patient is aware of appt Referral Priority Routine Referral Appointment Date 09/12/2025 Medications Medication SIG (Take, Route, Frequency, Duration) Notes Start Date End Date Status Viagra 100 MG take 1/2 tablet by mouth daily as needed Orally Once a day for 30 days Active Omeprazole 20 MG TAKE 1 CAPSULE BY MO [facility] EVERY DAY for 90 Active [...] DAY FOR 30 DAYS for 90 Active Immunizations Vaccine Route Administration Date Status Comme nts SARS-COV-2 Moderna Unknown 06/22/2021 [facility] SARS-COV-2 Moderna Unknown 07/20/2021 [facility] Fluarix Quadrivalent Unknown 10/24/2021 [facility] DECLINED, FLU Unknown 08/22/2014 Refused Flu Vaccine Unknown 10/03/2015 Refused Fluarix Quadrivalent Unknown 11/18/2019 Refused Fluarix Quadrivalent Unknown 12/25/2020 Refused Fluarix Quadrivalent Unknown 09/11/2021 Refused Fluarix Quadrivalent Unknown 09/30/2022 Refused Fluarix Quadrivalent Unknown 09/09/2023 Refused Social History Tobacco Use: Social History Observation [...] Never (0 point) Points 1 Interpretation Negative Problems Problem Type SNOMED Code ICD Code Onset Dates Problem Status W/U Status Risk Notes Problem 31197868 Restless leg syn drome (G25.81) Active confirmed Problem Annual health maintenance examination (38478046) Annual physical exam (Z00.00) Active confirmed Problem 52987367 Flat foot [pes p lanus] (acquired), right foot (M21.41) Active confirmed Problem 613362948 Body mass index (BMI) 31.0-31.9, adult (Z68.31) Active confirmed Problem 848165560 Gastroesophageal reflux disease without esophagitis (K21.9) Active confirmed Problem 19576586 Essential hypert ension (I10) Active confirmed Problem 4690645 Prediabetes (R73.09) Active confirmed Problem 609723475 Low HDL (under 4 0) (E78.6) Active confirmed Problem 923964996 Erectile dysfunc tion, unspecified erectile dysfunction type (N52.9) Active confirmed Problem 361505610 Asthmatic bronch itis, mild intermittent, uncomplicated (J45.20) Active confirmed Problem Carpal tunnel syndrome of right wrist (189444900405169) Carpal tunnel syndrome of right wrist (G56.01) Active confirmed Problem 965966029635187 Carpal tunnel sy ndrome of left wrist (G56.02) Active confirmed Problem 073194438 Pure hypercholesterolemia (E78.00) Active confirmed Problem 211740248 BMI 36.0-36.9,ad ult (Z68.36) Active confirmed Problem 295227370 Cervical spondyl osis without myelopathy (M47.812) Active confirmed Problem 58574907 Aortic valve scl erosis (I35.8) Active confirmed Problem 21711620 Tinea darnell (B36.2) Active confirmed Problem 81797259 Polyp of colon, unspecified part of colon, unspecified type (K63.5) Active confirmed Problem 45527880844866589 Carpal tunnel syndrome on both sides (G56.03) Active confirmed Problem 938696450 Acute asthmatic bronchitis (J45.909) Active confirmed Problem 57641815 Pulmonary valve stenosis, unspecified etiology (I37.0) Active confirmed Vital Signs Blood pressure diastolic 70 mm Hg 05/02/2025 Height 75 in 05/02/2025 Blood pressure systolic 110 mm Hg 05/02/2025 Weight 221 lbs 05/02/2025 BMI 27.62 kg/m2 05/02/2025 Encounters Encounter Location Date Provider Diagnosis Bryn Perla MD [address] [place] [address] Drive [address] [place] [id number] 03/21/2025 Bryn Perla Blood tests for leah malhotra general physical examination Z00.00 ; Prediabetes R73.09 ; Pure hypercholesterolemia E78.00 and Essential hypertension I10 Bryn Perla MD [address] [place] [id number] 09/30/2025 Bryn Perla Prediabetes R73.09 a nd Pure hypercholesterolemia E78.00 Bryn Perla MD [address] [place] [id number] 11/02/2024 Bryn Perla Acute asthmatic bron chitis J45.909 Bryn Perla MD [address] [place] [id number] 01/20/2025 Bryn Perla Knee injury, left, i nitial encounter S89.92XA Bryn Perla MD [address] [place] [id number] 03/28/2025 Bryn Perla Prediabetes R73.09 ; Annual physical exam Z00.00 ; Polyp of colon, unspecified part of colon, unspecified type K63.5 ; Pure hypercholesterolemia E78.00 ; Colon cancer screening Z12.11 ; Depression screening Z13.31 ; Essential hypertension I10 and Gastroesophageal reflux disease without esophagitis K21.9 Bryn Perla MD [address] [place] [id number] 05/02/2025 Bryn Perla Heart murmur R01.1 Assessments Encounter Date Diagnosis (ICD Code) Assessment Notes Treatment Notes Treatment Clinical Notes Section Notes 03/21/2025 Blood tests for leah malhotra general physical examination (ICD-10 - Z00.00) 09/30/2025 Prediabetes (ICD-10 - R73.09) 11/02/2024 Acute asthmatic bronchitis (ICD-10 - J45.909) to use his inhaler, patient verbalized understanding of medication nd direcdetions for use 01/20/2025 Knee injury, left, initial encounter (ICD-10 - S89.92XA) referral to ortho/ patient will be going to [facility] walk-in 03/28/2025 Prediabetes (ICD-10 - R73.09) keeping weight down, no need for medication at this time 03/28/2025 Annual physical exam (ICD-10 - Z00.00) ;labs reviewed and discussed with patient 05/02/2025 Heart murmur (ICD-10 - R01.1) send referral to dr samaniego 03/21/2025 Prediabetes (ICD-10 - R73.09) 09/30/2025 Pure hypercholesterolemia (ICD-10 - E78.00) 03/28/2025 Polyp of colon, unspecified part of colon, unspecified type (ICD-10 - K63.5) do for colonoscopy 03/21/2025 Pure hypercholesterolemia (ICD-10 - E78.00) 03/28/2025 Pure hypercholesterolemia (ICD-10 - E78.00) stable, will continue current regiment 03/21/2025 Essential hypertensi on (ICD-10 - I10) 03/28/2025 Colon cancer screeni ng (ICD-10 - Z12.11) guaiac negative 03/28/2025 Depression screening (ICD-10 - Z13.31) negative ascreen 03/28/2025 Essential hypertensi on (ICD-10 - I10) stable, will continue current regiment 03/28/2025 Gastroesophageal ref lux disease without esophagitis (ICD-10 - K21.9) stable, will continue current regiment 03/28/2025 Other REFERRAL FAXED TO [facility] Plan Of Treatment Pending Test Test Name Order Date Electrocardiogram (EKG) 06/05/2017 Electrocardiogram (EKG) 11/18/2019 XR ELBOW RT 07/20/2020 Cardiac Event Monitor 03/02/2021 ECHO 03/23/2024 Liver Panel 09/30/2025 Glucose Fasting 09/30/2025 Lipid Panel with Reflex 09/30/2025 Hemoglobin A1c 09/30/2025 Next Appt Details Provider Name:Bryn ta, 03/23/2026 07:00:00 AM, [address] [place] [address], [address], [place], [place], [phone], Provider Name:Bryn ta, 03/30/2026 02:30:00 PM, [address] [place] [address], [address], [place], [place], [phone], Insurance Providers Payer Name Payer Address Payer Phone Subscriber Number Group Number Insured Name Patient Relationship to Insured Coverage Start Date Coverage End Date [employer] [address] [place], [place] [id number] [phone] [id number] George Maddox Self - patient is the insured Medical (General) History Medical History History ICD Code colonoscopy 08/04 with polyp. repeat in 5 yrs (Dr. Smith). is going to see dr smith in june 2022: colonoscopy 08/28/22 repeat 3 yrs Refuses flu [id number]
--- OUTSIDE RECORDS SUMMARY | 2025-09-30 15:11 | XMS_ITS | Patient Health Record ---
Author Organization [facility] Address [address] [place] [address] Care Team Providers Care Out Patient Therapist Name Role Phone Bryn Perla MD Primary Care Provider Joselito Collins Unavailable [phone] Reason For Referral No Information Medications Medication SIG (Take, Route, Frequency, Duration) Notes Start Date End Date Status ProAir HFA 108 (90 Base) MCG/ACT 2 puffs as needed Inhalation every 4 hrs; Duration: 30 days 11/05/2013 Not-Taking Cialis 5 MG 1 tablet Orally; Duration: 30 day(s) 08/18/2014 Not-Taking Atorvastatin Calcium 40 MG 1 tablet Orally Once a day; Duration: 90 days Active Omeprazole 20 MG TAKE ONE CAPSULE INEZ RY DAY Orally Once a day; Duration: 90 days Active Viagra 100 MG 1 /2 tablet as neede d Orally Once a day; Duration: 30 day(s) 07/18/2015 Active Problems Problem Type SNOMED Code ICD Code Onset Dates Problem Status W/U Status Risk Notes Problem Pain in limb (33585633) Pain in Limb (729.5) Active confirmed Plan Of Treatment Pending Test Test Name Order Date X ray : Ankle, left 2V 08/17/2015 X ray : Ankle, right 2V 08/17/2015 X ray : Foot, left 2V 08/17/2015 X ray : Foot, right 2V 08/17/2015 Insurance Providers Payer Name Payer Address Payer Phone Subscriber Number Group Number Insured Name Patient Relationship to Insured Coverage Start Date Coverage End Date [facility] [address] [place] [address] [id number] George Gonzales Self - patient is the insured Medical (General) History Medical History History ICD Code asthma Back,Hip,and Knee pain Broken bones Cholesterol Chicken pox
== END 2025-09-30 12:58 | disposition home or self-care (01) ==
LOC: HO.LNP 12:57
PROVIDERS: Visit Provider Internal Medicine
DX: E78.00 Pure hypercholesterolemia, unspecified (principal); R73.09 Other abnormal glucose
CPT/HCPCS: 80061; 80076; 82947; 83036

== ENCOUNTER → 2025-11-04 08:03 | Outpatient (REF) | payer BC, SELFPAY ==
--- NOTE | 2025-11-04 08:06 | CA_ITS ---
Acquisition Time: 2025-11-04 08:12:01 Total Exercise Time: 00:10:42 Test Indications: CP Medications: SEE H&P Protocol: LASHON Max HR: 141 BPM 83% of Pred: 168 BPM Max BP: 170/84 mmHG Max Work Load: 12.9 METS Exercise stress test with exercise 10 mins 42 secs of Lashon Protocol, achieving 84% MPHR, with reports of SOB, no chest pain, without any arrythmias, with normotensive response to exercise. Without any EKG changes meeting criteria for ischemia. In recovery, breathing improved and pt feeling back to baseline. Test reviewed with Dr. Muñoz. Referred By: Teodoro Mock Electronically Signed By: Rico Liriano
== END ==
LOC: HO.CARD 08:03
PROVIDERS: PCP Internal Medicine; Visit Provider Internal Medicine
DX: R07.2 Precordial pain (principal)
CPT/HCPCS: 93017

== ENCOUNTER → 2025-11-04 08:06 | Outpatient (BNV) | payer BC, SELFPAY | PROVIDERS: PCP Internal Medicine | DX: R06.02 Shortness of breath (principal) | CPT/HCPCS: 93016; 93018 ==